=== PATIENT | female | born 1980 | race Caucasian/White ===

== ENCOUNTER 2017-01-07 14:14 | Emergency (ER) | payer OTHER ==
[2017-01-07 14:23] VITALS: O2SAT 99
[2017-01-07] MEDS ORDERED: Zofran 4 MG/2 ML VIAL IV ONE (14:32)
[2017-01-07] MEDS ORDERED: MORPHINE SULFATE 4 MG INJ IV ONE (14:32)
[2017-01-07] MEDS ORDERED: Sodium Chloride 0.9% 1000 ML 1,000 ML IV STA (14:32)
[2017-01-07] MEDS ORDERED: MORPHINE SULFATE 4 MG INJ ONE (14:36)
[2017-01-07] MEDS ORDERED: Sodium Chloride 0.9% 1000 ML 1,000 ML ONE (14:36)
[2017-01-07] MEDS ORDERED: Zofran 4 MG/2 ML VIAL ONE (14:36)
--- NOTE | 2017-01-07 14:36 | ERPHSYRPT ---
- History of Present Illness Time Seen by Provider: 01/07/17 14:33 Historian: patient Exam Limitations: no limitations Patient Subjective Stated Complaint: rt side abd pain Triage Nursing Assessment: 0300--rt side abd pain. states last night she had slight rt lower back pain but woke this morning at 0300 and pain has beenworse today. nausea with no vomiting. bs present. normal bm yesterday Physician History: 36-year-old white female arrives with complaint of midline suprapubic abdominal pain radiating to right flank symptoms since 3:00 this morning described as a burning type pain and squeezing type pain positive nausea no vomiting no diarrhea no melena no hematochezia. Past medical history migraines, GERD. Past surgical history includes cholecystectomy hysterectomy tubal ligation. Timing/Duration: today (3:00 this morning) Activities at Onset: none Quality: burning, pressure Abdominal Pain Onset Location: RLQ, suprapubic, flank (right flank) Pain Radiation: flank (right flank) Severity of Pain-Max: moderate Severity of Pain-Current: moderate Modifying Factors: Improves With: nothing Associated Symptoms: nausea, No chest pain, No diaphoresis, No diarrhea, No fever/chills, No fatigue, No headache, No heartburn, No loss of appetite, No neck pain, No rash, No shortness of breath, No syncope, No vomiting, No weakness Previous symptoms: no prior history Allergies/Adverse Reactions: oxycodone Allergy (Verified 01/07/17 14:23) Penicillins Allergy (Verified 01/07/17 14:23) Home Medications: Omeprazole 20 MG [Prilosec 20 mg] 20 mg PO DAILY 01/07/17 [History] Sumatriptan Succinate [Imitrex 50 mg] 50 mg PO UD 01/07/17 [History] Hx Tetanus, Diphtheria Vaccination/Date Given: Yes Hx Influenza Vaccination/Date Given: No Hx Pneumococcal Vaccination/Date Given: No Immunizations Up to Date: Yes - Review of Systems Constitutional: No Fever, No Chills Eyes: No Symptoms Ears, Nose, & Throat: No Symptoms Respiratory: No Cough, No Dyspnea Cardiac: No Chest Pain, No Edema, No Syncope Abdominal/Gastrointestinal: Abdominal Pain, Nausea, No Vomiting, No Diarrhea, No Constipation, No Hematemesis, No Hematochezia, No Melena, No Dysphagia, No Appetite Changes Genitourinary Symptoms: No Dysuria Musculoskeletal: No Back Pain, No Neck Pain Skin: No Rash Neurological: No Dizziness, No Focal Weakness, No Sensory Changes Psychological: No Symptoms Endocrine: No Symptoms All Other Systems: Reviewed and Negative - Past Medical History Pertinent Past Medical History: Yes Neurological History: Migraines GI Medical History: GERD - Past Surgical History Past Surgical History: Yes Gastrointestinal: Cholecystectomy Female Surgical History: Hysterectomy, Tubal Ligation - Social History Smoking Status: Never smoker Exposure to second hand smoke: Yes Drug Use: none Patient Lives Alone: No - Nursing Vital Signs Nursing Vital Signs: Initial Vital Signs Temperature 99.3 F Temperature Source Oral Pulse Rate 60 Respiratory Rate 18 Blood Pressure [] 145/73 Pain Intensity 1 - Physical Exam General Appearance: mild distress Eye Exam: PERRL/EOMI, eyes nml inspection Ears, Nose, Throat Exam: normal ENT inspection, pharynx normal, moist mucous membranes Neck Exam: normal inspection, non-tender, supple, full range of motion Respiratory Exam: normal breath sounds, lungs clear, No respiratory distress Cardiovascular Exam: regular rate/rhythm, normal heart sounds Gastrointestinal/Abdomen Exam: soft, normal bowel sounds, tenderness ( suprapubic and right-sided abdomina tenderness) Back Exam: normal inspection, normal range of motion, No CVA tenderness, No vertebral tenderness Extremity Exam: normal inspection, normal range of motion, pelvis stable Neurologic Exam: alert, oriented x 3, cooperative, normal mood/affect, nml cerebellar function, sensation nml, No motor deficits Skin Exam: normal color, warm, dry SpO2 Interpretation: normal (99%) SpO2: 99 Oxygen Delivery: Room Air - Course Nursing assessment & vital signs reviewed: Yes - CT Exams Abdomen/Pelvis CT Interpretation: Discussed w/radiologist (CT of the abdomen and pelvis with contrast impression: 1. New 4.2 cm right and 2 centimeter left ovarian cyst, tiny pelvic fluid suggesting leaking. 2. Stable suprapubic fatty ventral hernia, colonic diverticulosis, and hepatic/left renal cysts.) Ordered Tests: Active Orders 24 hr Category Date Time Status IV Insertion STAT Care 01/07/17 14:32 Active ABDOMEN AND PELVIS W CONTRAST [CT] Stat Exams 01/07/17 15:12 Completed AMYLASE Stat Lab 01/07/17 14:32 Completed CBC W DIFF Stat Lab 01/07/17 14:32 Completed CMP Stat Lab 01/07/17 14:32 Completed LIPASE Stat Lab 01/07/17 14:32 Completed UA W/ MICROSCOPIC Stat Lab 01/07/17 14:32 Completed Medication Summary Discontinued Medications Generic Name Dose Route Start Last Admin Trade Name Uday PRN Reason Stop Dose Admin Sodium Chloride 1,000 mls @ 999 mls/hr 01/07/17 14:32 01/07/17 14:38 Sodium Chloride 0.9% 1000 Ml IV 01/07/17 15:32 999 mls/hr .Q1H1M STA Administration Sodium Chloride Confirm 01/07/17 14:36 Sodium Chloride 0.9% 1000 Ml Administered 01/07/17 14:37 Dose 1,000 mls @ ud .ROUTE .STK-MED ONE Morphine Sulfate 4 mg 01/07/17 14:32 01/07/17 14:39 Morphine Sulfate 4 Mg Inj IV 01/07/17 14:33 4 mg STAT ONE Administration Morphine Sulfate Confirm 01/07/17 14:36 Morphine Sulfate 4 Mg Inj Administered 01/07/17 14:37 Dose 4 mg .ROUTE .STK-MED ONE Ondansetron HCl 4 mg 01/07/17 14:32 01/07/17 14:39 Zofran 4 Mg/2 Ml Vial IV 01/07/17 14:33 4 mg STAT ONE Administration Ondansetron HCl Confirm 01/07/17 14:36 Zofran 4 Mg/2 Ml Vial Administered 01/07/17 14:37 Dose 4 mg .ROUTE .STK-MED ONE Lab/Rad Data: Laboratory Result Diagrams 01/07/17 14:32 01/07/17 14:32 Laboratory Results 01/07/17 01/07/17 01/07/17 Range/Units 14:32 14:32 14:32 WBC 11.2 H (4.0-10.5) K/mm3 RBC 4.24 (4.1-5.4) M/mm3 Hgb 12.4 (12.0-16.0) gm/dl Hct 37.1 (35-47) % MCV 87.5 (78-100) fl MCH 29.2 (26-32) pg MCHC 33.4 (32-36) g/dl RDW 13.7 (11.5-14.0) % Plt Count 236 (150-450) K/mm3 MPV 9.6 H (6-9.5) fl Gran % 65.0 (36.0-66.0) % Lymphocytes % 24.1 (24.0-44.0) % Monocytes % 8.9 (0.0-12.0) % Eosinophils % 1.7 (0.00-5.0) % Basophils % 0.3 (0.0-0.4) % Basophils # 0.03 (0-0.4) Sodium 139 (136-145) mEq/L Potassium 3.8 (3.5-5.1) mEq/L Chloride 104 (98-107) mEq/L Carbon Dioxide 21.8 (21-32) mEq/L Anion Gap 16.5 H (5-15) MEQ/L BUN 19 (9-20) mg/dL Creatinine 0.81 (0.55-1.30) mg/dl Estimated GFR > 60 ML/MIN Glucose 103 (70-110) MG/DL Calcium 8.8 (8.5-10.1) mg/dL Total Bilirubin 0.3 (0.2-1.0) mg/dL AST 14 L (15-37) U/L ALT 19 (12-78) U/L Alkaline Phosphatase 81 (46-116) U/L Serum Total Protein 7.5 (6.4-8.2) gm/dL Albumin 3.9 (3.4-5.0) g/dL Amylase 28 (25-115) U/L Lipase 103 (73-393) U/L Ur Collection Type CCMS Urine Color YELLOW (YELLOW) Urine Appearance CLEAR (CLEAR) Urine pH 5.5 (5-6) Ur Specific [place] 1.025 (1.005-1.025) Urine Protein NEGATIVE (Negative) Urine Glucose (UA) NEGATIVE (NEGATIVE) mg/dL Urine Ketones NEGATIVE (NEGATIVE) Urine Nitrite NEGATIVE (NEGATIVE) Urine Bilirubin NEGATIVE (NEGATIVE) Urine Urobilinogen 0.2 (0-1) mg/dL Urine WBC (Auto) NEGATIVE (NEGATIVE) Urine RBC (Auto) MODERATE (0-5) Elia/ul Urine Microscopic RBC 5-10 (0-2) /HPF Urine Microscopic WBC 0-2 (0-5) /HPF Ur Epithelial Cells FEW (FEW) /HPF Urine Bacteria RARE (NEGATIVE) /HPF Specimen Received 01-07-17 1442 - Progress Progress: improved Progress Note: 01/07/17 16:27 Patient feeling better after IV normal saline and morphine. CT of the abdomen shows a new 4.2 cm right and a new 2 cm left ovarian cyst with tiny pelvic fluid suggesting leaky also stable Cipro umbilical fatty ventral hernia, colonic diverticulosis, and hepatic/left renal cyst. Will place patient on clear fluids and place patient on [place] for pain have patient follow-up with her family doctor (Dr. Landa) Patient is asked for the day off today will give her this. Patient has been advised to follow-up with Dr. landa to make an appointment and to return for acute distress or for severe symptoms. - Departure Time of Disposition: 16:28 Departure Disposition: Home Clinical Impression: Abdominal pain Qualifiers: Abdominal location: right lower quadrant Qualified Code(s): R10.31 - Right lower quadrant pain Ovarian cyst Qualifiers: Laterality: bilateral Qualified Code(s): N83.201 - Unspecified ovarian cyst, right side Condition: Fair Critical Care Time: No Referrals: JOSEPH LANDA [Primary Care Provider] - Instructions: Abdominal Pain-Adult Additional Instructions: Return home. Plenty of fluids. Clear fluids only if abdominal pain. [place] 5/325 #15 one to 2 orally every 4-6 hours as needed for pain. Follow-up with Dr. landa. Return for acute distress or for severe symptoms. Prescriptions: Hydrocodone/Acetaminophen [[place] 5-325 Tablet] 1 - 2 tab PO Q4-6HPRN PRN #15 tablet PRN Reason: Pain
[2017-01-07 14:42] LABS: BASOPHIL % 0.3 % (0.0-0.4); Eosinophil % 1.7 % (0.00-5.0); Lymphocytes % 24.1 % (24.0-44.0); Mean Cell Volume 87.5 fl (78-100); Mean Corpuscular Hemoglobin 29.2 pg (26-32); Mean Platelet Volume 9.6 fl (6-9.5); Monocytes % 8.9 % (0.0-12.0); Platelet Count 236 K/mm3 (150-450); Red Blood Count 4.24 M/mm3 (4.1-5.4); Red Cell Distribution Width 13.7 % (11.5-14.0); White Blood Count 11.2 K/mm3 (4.0-10.5)
[2017-01-07 15:03] LABS: ALBUMIN 3.9 g/dL (3.4-5.0); ALKALINE PHOSPHATASE 81 U/L (46-116); ANION GAP 16.5 MEQ/L (5-15); BILIRUBIN,TOTAL 0.3 mg/dL (0.2-1.0); BLOOD UREA NITROGEN 19 mg/dL (9-20); CHLORIDE 104 mEq/L (98-107); Carbon Dioxide 21.8 mEq/L (21-32); Glucose 103 MG/DL (70-110); LIPASE 103 U/L (73-393); Potassium 3.8 mEq/L (3.5-5.1); SGOT/AST 14 U/L (15-37); SGPT/ALT 19 U/L (12-78); SODIUM 139 mEq/L (136-145); Total Protein 7.5 gm/dL (6.4-8.2)
[2017-01-07 15:05] LABS: Collection Type CCMS
[2017-01-07 15:06] LABS: Bacteria RARE /HPF (NEGATIVE); COMPLETE URINE MICROSCOPIC? YES; Epithelial Cells FEW /HPF (FEW); Ph 5.5 (5-6); WBC 0-2 /HPF (0-5)
[2017-01-07 16:21] VITALS: BP 145/73; PULSE 60
--- NOTE | 2017-01-07 16:23 | XRAY ---
Indication: Severe right lower abdominal pain. Multiple contiguous axial images obtained through the abdomen and pelvis using 80 cc of Isovue-370 contrast. Comparison: September 03, 2017. Lung bases demonstrate minimal right base dependent atelectasis and left base fibrosis. No infiltrate, consolidation, or effusion. Heart is not enlarged. There is stable midline supraumbilical ventral hernia defect with large omental fat herniating. Noncontrasted stomach and bowel loops appear nonobstructed. Stable minimal descending/sigmoid diverticulosis without diverticulitis. Normal appendix. Previous cholecystectomy and partial hysterectomy. New 4.2 cm right and 2.0 cm left adnexal cystic masses probably ovary in etiology. Tiny pelvic fluid presumed ruptured/leaking cyst. No free air. Stable 1.5 cm caudate lobe hepatic cyst and tiny left renal cortical cyst. Remaining liver, pancreas, spleen, adrenal glands, kidneys, ureters, bladder, and aorta appear normal in CT appearance and attenuation. Osseous structures intact. Impression: 1. New 4.2 cm right and 2 cm left ovarian cysts. Tiny pelvic fluid suggests leaking/ruptured cyst. 2. Stable supraumbilical fatty ventral hernia, colonic diverticulosis, and hepatic/left renal cysts. CT DI 34.81
== END 2017-01-07 16:35 | disposition home or self-care (01) ==
LOC: ED 14:14
DX: R10.31 Right lower quadrant pain (principal); N83.201 Unspecified ovarian cyst, right side; M54.5 Low back pain; R10.9 Unspecified abdominal pain; R11.0 Nausea
CPT/HCPCS: 36000; 36415; 74177; 80053; 81000; 82150; 83690; 85025; 96360; 96374; 96375; 99284; J2270; J2405

== ENCOUNTER 2017-02-16 05:49 | Day surgery (SDC) | payer OTHER ==
[2017-02-16] MEDS ORDERED: Lactated Ringers 1,000 ML IV SCH (06:00)
[2017-02-16] MEDS ORDERED: Versed 2 MG/2 ML Injection IV ONE (06:00)
[2017-02-16] MEDS ORDERED: DIPRIVAN 200 MG/20 ML IV ONE (06:00)
[2017-02-16 08:27] VITALS: O2SAT 99
[2017-02-16 09:00] VITALS: BP 134/78; PULSE 55
--- NOTE | 2017-02-16 09:19 | OP ---
SURGERY DATE/TIME: 02/16/2017 0740 PREOPERATIVE DIAGNOSIS: Right upper quadrant abdominal pain. POSTOPERATIVE DIAGNOSIS: Moderate to severe antral gastritis. PROCEDURE: Esophagogastroduodenoscopy with biopsy. SURGEON: Dr. Darling. ANESTHESIA: MAC. Medications were given by the anesthesia department. BRIEF HISTORY: The patient is a 36 year old white female who presents now for complaints of right upper quadrant abdominal pain. The patient reports that she had been taking ibuprofen previously but had switched over to [place] by her doctor's suggestion. She reports that she had previously had cholecystectomy in 2007 but this pain does feel different than when she had the gallbladder removed. The patient was felt the need have endoscopic evaluation and appraised of the risks of the procedure including the risk of perforation, phlebitis, untoward reaction to medication, bleeding, missed lesions. The patient verbalized her understanding and desired to have the procedure performed. DESCRIPTION OF PROCEDURE: The patient was given the medications by the anesthesia department. She had continuous pulse oximetry, ECG monitoring, intermittent blood pressure monitoring and tidal CO2 monitoring during the examination. She was placed in the left lateral decubitus position. A bite block was placed. The flexible Olympus gastroscope was used to intubate the oropharynx. A view of the larynx was obtained and was normal. The scope was easily passed in the esophagus which appeared to be normal throughout its length. The stomach was entered where normal gastric rugal folds were seen and these distended nicely with insufflation of air. The scope was passed along the greater curvature of the stomach to the antrum which was moderately erythematous. There was noted to be small erosions bordering on ulceration near the pylorus. The scope was advanced through the pylorus. The duodenum was inspected and found to be normal. The scope is withdrawn towards the stomach. Again, a retroflex view was obtained of the lesser curvature, fundus and cardia regions of the stomach and these appeared to be normal other than some erythematous patches. The scope was then redirected towards the gastric antrum and biopsies were obtained to rule out the presence of Helicobacter pylori-type organisms. The scope was then removed from the patient who tolerated the procedure well and was sent back to outpatient recovery in good condition.
== END 2017-02-16 09:05 | disposition home or self-care (01) ==
LOC: SDC 05:49
PROVIDERS: ATTEND Family Medicine
PROC: 0DB68ZX Excision of Stomach, Via Natural or Artificial Opening Endoscopic, Diagnostic (ICD-10-PCS; principal; 2017-02-16)
DX: K29.70 Gastritis, unspecified, without bleeding (principal)
CPT/HCPCS: 00740; 36415; 88305; J2250; J2704

== ENCOUNTER 2017-12-26 16:54 | Emergency (ER) | payer BC, OTHER ==
[2017-12-26] MEDS ORDERED: BABY ASPIRIN 81 MG CHEW PO ONE (17:06)
--- NOTE | 2017-12-26 17:11 | ERPHSYRPT ---
- History of Present Illness Time Seen by Provider: 12/26/17 16:54 Source: patient Exam Limitations: no limitations Physician History: FOR THE PAST WEEK PT HAS FELT HER HEART FLUTTERING; FOR THE PAST 2 DAYS DIARRHEA X5 WITHOUT BLOOD; FOR THE PAST 8 HOURS SHORTNESS OF AIR. PT DENIES ABDOMINAL PAIN, NAUSEA, VOMITING, FEVER. Allergies/Adverse Reactions: oxycodone Allergy (Verified 12/26/17 17:08) Penicillins Allergy (Verified 12/26/17 17:08) Home Medications: Sumatriptan Succinate [Imitrex 50 mg] 50 mg PO UD 01/07/17 [History] Esomeprazole Magnesium [Nexium] 40 mg PO DAILY 02/13/17 [History] Lisinopril 10 mg [Zestril 10 MG] 10 mg PO DAILY 02/13/17 [History] Hx Tetanus, Diphtheria Vaccination/Date Given: Yes Hx Influenza Vaccination/Date Given: No Hx Pneumococcal Vaccination/Date Given: No - Review of Systems Constitutional: No Fever Respiratory: Dyspnea Cardiac: Palpitations Abdominal/Gastrointestinal: Diarrhea, No Abdominal Pain, No Nausea, No Vomiting All Other Systems: Reviewed and Negative - Past Medical History Pertinent Past Medical History: Yes Neurological History: Migraines ENT History: No Pertinent History Cardiac History: Arrhythmia, Deep Vein Thrombosis, Hypertension, Myocardial Infarction ([place]), Other Respiratory History: No Pertinent History Endocrine Medical History: No Pertinent History Musculoskeletal History: No Pertinent History GI Medical History: GERD History: No Pertinent History Psycho-Social History: No Pertinent History Other Medical History: states heart murmur and valve problems - Past Surgical History Past Surgical History: Yes Neuro Surgical History: No Pertinent History Cardiac: No Pertinent History Respiratory: No Pertinent History Gastrointestinal: Cholecystectomy Female Surgical History: Hysterectomy, Tubal Ligation - Social History Smoking Status: Never smoker Exposure to second hand smoke: Yes Drug Use: none Patient Lives Alone: No - Nursing Vital Signs Nursing Vital Signs: Initial Vital Signs Temperature 97.7 F 12/26/17 16:57 Pulse Rate 62 12/26/17 16:57 Respiratory Rate 18 12/26/17 16:57 Blood Pressure 161/85 12/26/17 16:57 O2 Sat by Pulse Oximetry 99 12/26/17 16:57 Pain Scale Pain Intensity 0 - Physical Exam General Appearance: alert Eye Exam: PERRL/EOMI Ears, Nose, Throat Exam: TMs normal, pharynx normal, moist mucous membranes Neck Exam: normal inspection Respiratory Exam: lungs clear Cardiovascular Exam: normal heart sounds, No murmur Gastrointestinal/Abdomen Exam: soft, normal bowel sounds Back Exam: normal range of motion Extremity Exam: normal inspection, No pedal edema Neurologic Exam: alert, cooperative Skin Exam: warm, dry - Course Nursing assessment & vital signs reviewed: Yes EKG Interpreted by Me: RATE (55), Sinus [place], NORMAL AXIS, NORMAL INTERVALS - Radiology Exams Chest X-ray Interpretation: Interpreted by me, No Pneumonia Ordered Tests: Active Orders 24 hr Category Date Time Status Timber Setter STAT Care 12/26/17 17:07 Active EKG-ER Only STAT Care 12/26/17 17:06 Active IV Insertion STAT Care 12/26/17 17:06 Active Oxygen-ED Only NASAL CANNULA 2 lpm Care 12/26/17 17:06 Active Pulse Oximetry (ED) STAT Care 12/26/17 17:06 Active CHEST 1 VIEW (PORTABLE) Stat Exams 12/26/17 17:06 Taken AMYLASE Stat Lab 12/26/17 17:15 Completed CBC W DIFF Stat Lab 12/26/17 17:15 Completed CMP Stat Lab 12/26/17 17:15 Completed D-DIMER QUANTITATION Stat Lab 12/26/17 17:15 Completed HCG QUALITATIVE,SERUM Stat Lab 12/26/17 17:15 Completed LIPASE Stat Lab 12/26/17 17:15 Completed MAGNESIUM Stat Lab 12/26/17 17:15 Completed NT PRO BNP Stat Lab 12/26/17 17:15 Completed TROPONIN Q3H Lab 12/26/17 17:15 Completed TROPONIN Q3H Lab 12/26/17 20:15 Ordered TROPONIN Q3H Lab 12/26/17 23:15 Ordered TROPONIN Q3H Lab 12/27/17 02:15 Ordered TROPONIN Q3H Lab 12/27/17 05:15 Ordered UA W/ MICROSCOPIC Stat Lab 12/26/17 17:30 Completed Urine Triage Profile Stat Lab 12/26/17 17:30 Completed Medication Summary Generic Name Dose Route Start Last Admin Trade Name Freq PRN Reason Stop Dose Admin Sodium Chloride 1,000 mls @ 100 mls/hr 12/26/17 17:15 12/26/17 17:30 Sodium Chloride 0.9% 1000 Ml IV 01/25/18 17:14 100 mls/hr .Q10H LILLIAM Administration Discontinued Medications Generic Name Dose Route Start Last Admin Trade Name Uday PRN Reason Stop Dose Admin Aspirin 324 mg 12/26/17 17:06 12/26/17 17:29 Baby Aspirin 81 Mg Chew PO 12/26/17 17:07 324 mg STAT ONE Administration Aspirin Confirm 12/26/17 17:22 Baby Aspirin 81 Mg Chew Administered 12/26/17 17:23 Dose 324 mg .ROUTE .STK-MED ONE Lab/Rad Data: Laboratory Result Diagrams 12/26/17 17:15 12/26/17 17:15 Laboratory Results 12/26/17 12/26/17 12/26/17 Range/Units 17:30 17:30 17:15 WBC (4.0-10.5) K/mm3 RBC (4.1-5.4) M/mm3 Hgb (12.0-16.0) gm/dl Hct (35-47) % MCV (78-100) fl MCH (26-32) pg MCHC (32-36) g/dl RDW (11.5-14.0) % Plt Count (150-450) K/mm3 MPV (6-9.5) fl Gran % (36.0-66.0) % Eos # (Auto) (0-0.5) Absolute Lymphs (auto) (1.0-4.6) Absolute Monos (auto) (0.0-1.3) Lymphocytes % (24.0-44.0) % Monocytes % (0.0-12.0) % Eosinophils % (0.00-5.0) % Basophils % (0.0-0.4) % Absolute Granulocytes (1.4-6.9) Basophils # (0-0.4) D-Dimer (215-500) ng/mL Sodium (137-145) mmol/L Potassium (3.5-5.1) mmol/L Chloride (98-107) mmol/L Carbon Dioxide (22-30) mmol/L Anion Gap (5-15) MEQ/L BUN (7-17) mg/dL Creatinine (0.52-1.04) mg/dL Estimated GFR ML/MIN Glucose (74-106) mg/dL Calcium (8.4-10.2) mg/dL Magnesium (1.6-2.3) mg/dL Total Bilirubin (0.2-1.3) mg/dL AST (14-36) U/L ALT (0-35) U/L Alkaline Phosphatase (38-126) U/L Troponin I (0.000-0.034) ng/mL NT-Pro-B Natriuret Pep (0-450) pg/mL Serum Total Protein (6.3-8.2) g/dL Albumin (3.5-5.0) g/dL Amylase (30-110) U/L Lipase (23-300) U/L Serum , Qual NEGATIVE (Negative) Ur Collection Type CLEAN CATCH Urine Color YELLOW (YELLOW) Urine Appearance CLEAR (CLEAR) Urine pH 7.0 (5-6) Ur Specific [place] 1.015 (1.005-1.025) Urine Protein NEGATIVE (Negative) Urine Ketones SMALL (NEGATIVE) Urine Blood TRACE NON-HEM (0-5) Elia/ul Urine Nitrite NEGATIVE (NEGATIVE) Urine Bilirubin NEGATIVE (NEGATIVE) Urine Urobilinogen NORMAL (0-1) mg/dL Ur Leukocyte Esterase NEGATIVE (NEGATIVE) Urine Microscopic RBC 2-5 (0-2) /HPF Ur Epithelial Cells FEW (FEW) /HPF Urine Bacteria RARE (NEGATIVE) /HPF Urine Culture Reflexed NO (NO) Urine Glucose NEGATIVE (NEGATIVE) mg/dL Urine Opiates Level NEGATIVE (NEGATIVE) Ur Methadone NEGATIVE (NEGATIVE) Urine Barbiturates NEGATIVE (NEGATIVE) Ur Phencyclidine (PCP) NEGATIVE (NEGATIVE) Urine Amphetamine NEGATIVE (NEGATIVE) U Benzodiazepine Level NEGATIVE (NEGATIVE) Urine Cocaine NEGATIVE (NEGATIVE) Urine Marijuana (THC) POSITIVE (NEGATIVE) Specimen Received 12/26/17 0000 12/26/17 12/26/17 12/26/17 Range/Units 17:15 17:15 17:15 WBC (4.0-10.5) K/mm3 RBC (4.1-5.4) M/mm3 Hgb (12.0-16.0) gm/dl Hct (35-47) % MCV (78-100) fl MCH (26-32) pg MCHC (32-36) g/dl RDW (11.5-14.0) % Plt Count (150-450) K/mm3 MPV (6-9.5) fl Gran % (36.0-66.0) % Eos # (Auto) (0-0.5) Absolute Lymphs (auto) (1.0-4.6) Absolute Monos (auto) (0.0-1.3) Lymphocytes % (24.0-44.0) % Monocytes % (0.0-12.0) % Eosinophils % (0.00-5.0) % Basophils % (0.0-0.4) % Absolute Granulocytes (1.4-6.9) Basophils # (0-0.4) D-Dimer < 215 L (215-500) ng/mL Sodium 137 (137-145) mmol/L Potassium 3.8 (3.5-5.1) mmol/L Chloride 105 (98-107) mmol/L Carbon Dioxide 21 L (22-30) mmol/L Anion Gap 14.6 (5-15) MEQ/L BUN 16 (7-17) mg/dL Creatinine 0.75 (0.52-1.04) mg/dL Estimated GFR > 60.0 ML/MIN Glucose 106 (74-106) mg/dL Calcium 9.4 (8.4-10.2) mg/dL Magnesium 2.0 (1.6-2.3) mg/dL Total Bilirubin 0.60 (0.2-1.3) mg/dL AST 16 (14-36) U/L ALT 15 (0-35) U/L Alkaline Phosphatase 90 (38-126) U/L Troponin I < 0.012 (0.000-0.034) ng/mL NT-Pro-B Natriuret Pep 82.1 (0-450) pg/mL Serum Total Protein 7.8 (6.3-8.2) g/dL Albumin 4.4 (3.5-5.0) g/dL Amylase 48 (30-110) U/L Lipase 89 (23-300) U/L Serum , Qual (Negative) Ur Collection Type Urine Color (YELLOW) Urine Appearance (CLEAR) Urine pH (5-6) Ur Specific [place] (1.005-1.025) Urine Protein (Negative) Urine Ketones (NEGATIVE) Urine Blood (0-5) Elia/ul Urine Nitrite (NEGATIVE) Urine Bilirubin (NEGATIVE) Urine Urobilinogen (0-1) mg/dL Ur Leukocyte Esterase (NEGATIVE) Urine Microscopic RBC (0-2) /HPF Ur Epithelial Cells (FEW) /HPF Urine Bacteria (NEGATIVE) /HPF Urine Culture Reflexed (NO) Urine Glucose (NEGATIVE) mg/dL Urine Opiates Level (NEGATIVE) Ur Methadone (NEGATIVE) Urine Barbiturates (NEGATIVE) Ur Phencyclidine (PCP) (NEGATIVE) Urine Amphetamine (NEGATIVE) U Benzodiazepine Level (NEGATIVE) Urine Cocaine (NEGATIVE) Urine Marijuana (THC) (NEGATIVE) Specimen Received 12/26/17 Range/Units 17:15 WBC 9.5 (4.0-10.5) K/mm3 RBC 4.71 (4.1-5.4) M/mm3 Hgb 13.7 (12.0-16.0) gm/dl Hct 40.1 (35-47) % MCV 85.1 (78-100) fl MCH 29.1 (26-32) pg MCHC 34.2 (32-36) g/dl RDW 12.9 (11.5-14.0) % Plt Count 257 (150-450) K/mm3 MPV 9.5 (6-9.5) fl Gran % 65.4 (36.0-66.0) % Eos # (Auto) 0.09 (0-0.5) Absolute Lymphs (auto) 2.40 (1.0-4.6) Absolute Monos (auto) 0.77 (0.0-1.3) Lymphocytes % 25.3 (24.0-44.0) % Monocytes % 8.1 (0.0-12.0) % Eosinophils % 0.9 (0.00-5.0) % Basophils % 0.3 (0.0-0.4) % Absolute Granulocytes 6.19 (1.4-6.9) Basophils # 0.03 (0-0.4) D-Dimer (215-500) ng/mL Sodium (137-145) mmol/L Potassium (3.5-5.1) mmol/L Chloride (98-107) mmol/L Carbon Dioxide (22-30) mmol/L Anion Gap (5-15) MEQ/L BUN (7-17) mg/dL Creatinine (0.52-1.04) mg/dL Estimated GFR ML/MIN Glucose (74-106) mg/dL Calcium (8.4-10.2) mg/dL Magnesium (1.6-2.3) mg/dL Total Bilirubin (0.2-1.3) mg/dL AST (14-36) U/L ALT (0-35) U/L Alkaline Phosphatase (38-126) U/L Troponin I (0.000-0.034) ng/mL NT-Pro-B Natriuret Pep (0-450) pg/mL Serum Total Protein (6.3-8.2) g/dL Albumin (3.5-5.0) g/dL Amylase (30-110) U/L Lipase (23-300) U/L Serum , Qual (Negative) Ur Collection Type Urine Color (YELLOW) Urine Appearance (CLEAR) Urine pH (5-6) Ur Specific [place] (1.005-1.025) Urine Protein (Negative) Urine Ketones (NEGATIVE) Urine Blood (0-5) Elia/ul Urine Nitrite (NEGATIVE) Urine Bilirubin (NEGATIVE) Urine Urobilinogen (0-1) mg/dL Ur Leukocyte Esterase (NEGATIVE) Urine Microscopic RBC (0-2) /HPF Ur Epithelial Cells (FEW) /HPF Urine Bacteria (NEGATIVE) /HPF Urine Culture Reflexed (NO) Urine Glucose (NEGATIVE) mg/dL Urine Opiates Level (NEGATIVE) Ur Methadone (NEGATIVE) Urine Barbiturates (NEGATIVE) Ur Phencyclidine (PCP) (NEGATIVE) Urine Amphetamine (NEGATIVE) U Benzodiazepine Level (NEGATIVE) Urine Cocaine (NEGATIVE) Urine Marijuana (THC) (NEGATIVE) Specimen Received - Departure Time of Disposition: 18:20 Departure Disposition: Home Clinical Impression: DYSPNEA, PALPITATIONS, DIARRHEA Condition: Stable Critical Care Time: No Referrals: JOSEPH BENDER [Primary Care Provider] - Instructions: Shortness of Breath (Dyspnea) (DC), Diarrhea and Traveler's Diarrhea, Adult (DC) Additional Instructions: FOLLOW UP WITH PRIVATE DOCTOR TOMORROW.
[2017-12-26] MEDS ORDERED: Sodium Chloride 0.9% 1000 ML 1,000 ML IV SCH (17:15)
[2017-12-26 17:18] VITALS: O2SAT 98
[2017-12-26] MEDS ORDERED: Sodium Chloride 0.9% 1000 ML 1,000 ML ONE (17:22)
[2017-12-26] MEDS ORDERED: BABY ASPIRIN 81 MG CHEW ONE (17:22)
[2017-12-26 17:35] LABS: BASOPHIL % 0.3 % (0.0-0.4); Basophil (Absolute #) 0.03 (0-0.4); Eosinophil % 0.9 % (0.00-5.0); Eosinophil (Absolute #) 0.09 (0-0.5); Granulocyte Absolute (ANC) 6.19 (1.4-6.9); Granulocytes % 65.4 % (36.0-66.0); Hematocrit 40.1 % (35-47); Hemoglobin 13.7 gm/dl (12.0-16.0); Lymphocytes % 25.3 % (24.0-44.0); Mean Cell Volume 85.1 fl (78-100); Mean Corpuscular Hemoglobin 29.1 pg (26-32); Mean Corpuscular Hgb Concent. 34.2 g/dl (32-36); Mean Platelet Volume 9.5 fl (6-9.5); Monocyte (Absolute #) 0.77 (0.0-1.3); Monocytes % 8.1 % (0.0-12.0); Platelet Count 257 K/mm3 (150-450); Red Blood Count 4.71 M/mm3 (4.1-5.4); Red Cell Distribution Width 12.9 % (11.5-14.0); White Blood Count 9.5 K/mm3 (4.0-10.5)
[2017-12-26 17:56] LABS: Appearance CLEAR (CLEAR); Leukocyte Esterase NEGATIVE (NEGATIVE); Nitrite NEGATIVE (NEGATIVE); Protein,Urine Dip NEGATIVE (Negative); Specific Gravity 1.015 (1.005-1.025)
[2017-12-26 17:57] LABS: ALBUMIN 4.4 g/dL (3.5-5.0); ALKALINE PHOSPHATASE 90 U/L (38-126); AMYLASE 48 U/L (30-110); ANION GAP 14.6 MEQ/L (5-15); BLOOD UREA NITROGEN 16 mg/dL (7-17); CHLORIDE 105 mmol/L (98-107); Calcium 9.4 mg/dL (8.4-10.2); Carbon Dioxide 21 mmol/L (22-30); Creatinine 1 0.75 mg/dL (0.52-1.04); Glucose 106 mg/dL (74-106); LIPASE 89 U/L (23-300); Potassium 3.8 mmol/L (3.5-5.1); SGOT/AST 16 U/L (14-36); SGPT/ALT 15 U/L (0-35); SODIUM 137 mmol/L (137-145); Total Protein 7.8 g/dL (6.3-8.2)
[2017-12-26 17:57] LABS: Amphetamine,Urine NEGATIVE (NEGATIVE); Bacteria RARE /HPF (NEGATIVE); Barbiturate,Urine NEGATIVE (NEGATIVE); Benzodiazepine,Urine NEGATIVE (NEGATIVE); Bilirubin NEGATIVE (NEGATIVE); Blood TRACE NON-HEM Ery/ul (0-5); Cocaine,Urine NEGATIVE (NEGATIVE); Epithelial Cells FEW /HPF (FEW); Glucose NEGATIVE (NEGATIVE); Ketones SMALL (NEGATIVE); Methadone,Urine NEGATIVE (NEGATIVE); Opiate,Urine NEGATIVE (NEGATIVE); PCP,Urine NEGATIVE (NEGATIVE); THC,Urine POSITIVE (NEGATIVE); Urobilinogen NORMAL mg/dL (0-1)
[2017-12-26 18:06] LABS: NT PRO BNP 82.1 pg/mL (0-450)
[2017-12-26 18:29] VITALS: BP 138/102; PULSE 60
--- NOTE | 2017-12-26 21:06 | XRAY ---
Indication: Short of breath. Comparison: None Portable chest demonstrate normal heart, lungs, and bony thorax.
== END 2017-12-26 18:33 | disposition home or self-care (01) ==
LOC: ED 16:54
DX: R06.00 Dyspnea, unspecified (principal); R00.2 Palpitations; R19.7 Diarrhea, unspecified; Z79.899 Other long term (current) drug therapy
CPT/HCPCS: 36000; 36415; 71045; 80053; 80307; 81000; 82150; 83690; 83735; 83880; 84484; 84703; 85025; 85379; 93005; 93041; 96360; 96361; 99284; A9270-GY

== ENCOUNTER 2018-11-08 19:25 | Emergency (ER) | payer BC, SELFPAY ==
--- NOTE | 2018-11-08 19:52 | ERPHSYRPT ---
- History of Present Illness Time Seen by Provider: 11/08/18 19:47 Historian: patient Exam Limitations: no limitations Patient Subjective Stated Complaint: pt states she suddenly began having rt sided back pain approx 1 hour prior to arrival Triage Nursing Assessment: pt alert and orienteed, asnwers questions approp. pt ambulatory with slow steady gait noted. respirations nonlabored with lungs cta. abd soft and nontender to light palpation. urine rush and clear Physician History: The patient is a 37-year-old female with her daughter complaining of a sudden onset of right flank pain with nausea that began one hour ago. The pain is very severe. She has not taken anything for the pain. She denies vomiting or diarrhea. She denies fever. Her past medical history is significant for HTN, migraine headaches, kidney stones, cholecystectomy, and hysterectomy. Timing/Duration: today, hour(s) (1), sudden, worse Activities at Onset: none Quality: sharpness, stabbing Abdominal Pain Onset Location: flank (right) Pain Radiation: no radiation Severity of Pain-Max: severe Severity of Pain-Current: severe Modifying Factors: Improves With: nothing Associated Symptoms: nausea, No diarrhea, No fever/chills, No headache, No vomiting Previous symptoms: same symptoms as today Allergies/Adverse Reactions: oxycodone Allergy (Verified 11/08/18 19:48) Penicillins Allergy (Verified 11/08/18 19:48) Home Medications: SUMAtriptan succinate [Imitrex 50 mg] 50 mg PO UD 01/07/17 [History] Esomeprazole Magnesium [Nexium] 40 mg PO DAILY 02/13/17 [History] Lisinopril 10 mg [Zestril 10 MG] 20 mg PO DAILY 02/13/17 [History] Hx Tetanus, Diphtheria Vaccination/Date Given: Yes Hx Influenza Vaccination/Date Given: No Hx Pneumococcal Vaccination/Date Given: No Immunizations Up to Date: Yes - Review of Systems Constitutional: No Fever, No Chills Eyes: No Symptoms Ears, Nose, & Throat: No Symptoms Respiratory: No Cough, No Dyspnea Cardiac: No Chest Pain, No Edema, No Syncope Abdominal/Gastrointestinal: Abdominal Pain (right flank), Nausea Genitourinary Symptoms: No Dysuria Musculoskeletal: No Back Pain, No Neck Pain Skin: No Rash Neurological: No Dizziness, No Focal Weakness, No Sensory Changes Psychological: No Symptoms Endocrine: No Symptoms Hematologic/Lymphatic: No Symptoms Immunological/Allergic: No Symptoms All Other Systems: Reviewed and Negative - Past Medical History Pertinent Past Medical History: Yes Neurological History: Migraines ENT History: No Pertinent History Cardiac History: Arrhythmia, Deep Vein Thrombosis, Hypertension, Myocardial Infarction ([place]), Other Respiratory History: No Pertinent History Endocrine Medical History: No Pertinent History Musculoskeletal History: No Pertinent History GI Medical History: GERD History: No Pertinent History Psycho-Social History: No Pertinent History Other Medical History: states heart murmur and valve problems - Past Surgical History Past Surgical History: Yes Neuro Surgical History: No Pertinent History Cardiac: No Pertinent History Respiratory: No Pertinent History Gastrointestinal: Cholecystectomy Female Surgical History: Hysterectomy, Tubal Ligation - Social History Smoking Status: Former smoker Exposure to second hand smoke: Yes Drug Use: none Patient Lives Alone: No - Female History Hx Last Menstrual Period: hyster Hx Now: No - Nursing Vital Signs Nursing Vital Signs: Initial Vital Signs Temperature 97.5 F 11/08/18 19:33 Pulse Rate 61 11/08/18 19:33 Respiratory Rate 20 11/08/18 19:33 Blood Pressure 150/91 11/08/18 19:33 O2 Sat by Pulse Oximetry 100 11/08/18 19:33 Pain Scale Pain Intensity 8 - Physical Exam General Appearance: severe distress, obese Eye Exam: PERRL/EOMI, eyes nml inspection Ears, Nose, Throat Exam: normal ENT inspection, pharynx normal, moist mucous membranes Neck Exam: normal inspection, non-tender, supple, full range of motion Respiratory Exam: normal breath sounds, lungs clear, No respiratory distress Cardiovascular Exam: regular rate/rhythm, normal heart sounds Gastrointestinal/Abdomen Exam: tenderness (right flank) Pelvic Exam: not done Rectal Exam: not done Back Exam: normal inspection, normal range of motion, No CVA tenderness, No vertebral tenderness Extremity Exam: normal inspection, normal range of motion, pelvis stable Neurologic Exam: alert, oriented x 3, cooperative, normal mood/affect, nml cerebellar function, sensation nml, No motor deficits Skin Exam: normal color, warm, dry SpO2 Interpretation: normal SpO2: 100 O2 Delivery: Room Air - CT Exams Abdomen/Pelvis CT Interpretation: Tele-radiologist Report (per Dr Brice), No appendicitis, Other (2 m stone in proximal right ureter with mild hydronephrosis) Ordered Tests: Active Orders 24 hr Category Date Time Status Clean Catch Urine Specimen STAT Care 11/08/18 19:53 Active IV Insertion STAT Care 11/08/18 19:53 Active ABDOMEN AND PELVIS W/0 CONTRAS [CT] Stat Exams 11/08/18 19:54 Taken AMYLASE Stat Lab 11/08/18 19:45 Completed CBC W DIFF Stat Lab 11/08/18 19:45 Completed CMP Stat Lab 11/08/18 19:45 Completed CULTURE,URINE Stat Lab 11/08/18 19:45 Received LIPASE Stat Lab 11/08/18 19:45 Completed Lactic Acid Stat Lab 11/08/18 20:15 Completed UA W/RFX UR CULTURE Stat Lab 11/08/18 19:45 Completed Medication Summary Generic Name Dose Route Start Last Admin Trade Name Freq PRN Reason Stop Dose Admin Sodium Chloride 1,000 mls @ 999 mls/hr 11/08/18 22:14 11/08/18 22:32 Sodium Chloride 0.9% 1000 Ml IV 11/08/18 23:14 999 mls/hr .Q1H1M STA Administration Discontinued Medications Generic Name Dose Route Start Last Admin Trade Name Freq PRN Reason Stop Dose Admin Hydromorphone HCl 1 mg 11/08/18 19:53 11/08/18 20:07 Hydromorphone 1 Mg/Ml Ampule IV 11/08/18 19:54 1 mg STAT ONE Administration Hydromorphone HCl Confirm 11/08/18 19:59 Hydromorphone 1 Mg/Ml Ampule Administered 11/08/18 20:00 Dose 1 mg .ROUTE .STK-MED ONE Hydromorphone HCl 1 mg 11/08/18 22:14 11/08/18 22:33 Hydromorphone 1 Mg/Ml Ampule IV 11/08/18 22:15 1 mg STAT ONE Administration Hydromorphone HCl Confirm 11/08/18 22:27 Hydromorphone 1 Mg/Ml Ampule Administered 11/08/18 22:28 Dose 1 mg .ROUTE .STK-MED ONE Sodium Chloride 1,000 mls @ 999 mls/hr 11/08/18 19:53 11/08/18 20:08 Sodium Chloride 0.9% 1000 Ml IV 11/08/18 20:53 999 mls/hr .Q1H1M STA Administration Sodium Chloride Confirm 11/08/18 20:00 Sodium Chloride 0.9% 1000 Ml Administered 11/08/18 20:01 Dose 1,000 mls @ ud .ROUTE .STK-MED ONE Sodium Chloride Confirm 11/08/18 22:27 Sodium Chloride 0.9% 1000 Ml Administered 11/08/18 22:28 Dose 1,000 mls @ ud .ROUTE .STK-MED ONE Ondansetron HCl 4 mg 11/08/18 19:55 11/08/18 20:07 Zofran 4 Mg/2 Ml Vial IV 11/08/18 19:56 4 mg STAT ONE Administration Ondansetron HCl Confirm 11/08/18 19:59 Zofran 4 Mg/2 Ml Vial Administered 11/08/18 20:00 Dose 4 mg .ROUTE .STK-MED ONE Promethazine HCl 25 mg 11/08/18 19:53 11/08/18 20:07 Phenergan 25 Mg Inj IM 11/08/18 19:54 25 mg STAT ONE Administration Promethazine HCl Confirm 11/08/18 19:59 Phenergan 25 Mg Inj Administered 11/08/18 20:00 Dose 25 mg .ROUTE .STK-MED ONE Lab/Rad Data: Laboratory Result Diagrams 11/08/18 19:45 11/08/18 19:45 Laboratory Results 11/08/18 11/08/18 11/08/18 Range/Units 20:15 19:45 19:45 WBC (4.0-10.5) K/mm3 RBC (4.1-5.4) M/mm3 Hgb (12.0-16.0) gm/dl Hct (35-47) % MCV (78-100) fl MCH (26-32) pg MCHC (32-36) g/dl RDW (11.5-14.0) % Plt Count (150-450) K/mm3 MPV (6-9.5) fl Gran % (36.0-66.0) % Eos # (Auto) (0-0.5) Absolute Lymphs (auto) (1.0-4.6) Absolute Monos (auto) (0.0-1.3) Lymphocytes % (24.0-44.0) % Monocytes % (0.0-12.0) % Eosinophils % (0.00-5.0) % Basophils % (0.0-0.4) % Absolute Granulocytes (1.4-6.9) Basophils # (0-0.4) Sodium 137 (137-145) mmol/L Potassium 3.5 (3.5-5.1) mmol/L Chloride 106 (98-107) mmol/L Carbon Dioxide 21 L (22-30) mmol/L Anion Gap 14.0 (5-15) MEQ/L BUN 24 H (7-17) mg/dL Creatinine 0.72 (0.52-1.04) mg/dL Estimated GFR > 60.0 ML/MIN Glucose 113 H (74-106) mg/dL Lactic Acid 1.1 (0.4-2.0) Calcium 9.4 (8.4-10.2) mg/dL Total Bilirubin 0.40 (0.2-1.3) mg/dL AST 14 (14-36) U/L ALT 16 (0-35) U/L Alkaline Phosphatase 80 (38-126) U/L Serum Total Protein 7.7 (6.3-8.2) g/dL Albumin 4.4 (3.5-5.0) g/dL Amylase 41 (30-110) U/L Lipase 71 (23-300) U/L Urine Color YELLOW (YELLOW) Urine Appearance CLOUDY (CLEAR) Urine pH 5.0 (5-6) Ur Specific [place] 1.027 (1.005-1.025) Urine Protein 30 (Negative) Urine Ketones TRACE (NEGATIVE) Urine Blood LARGE (0-5) Elia/ul Urine Nitrite NEGATIVE (NEGATIVE) Urine Bilirubin NEGATIVE (NEGATIVE) Urine Urobilinogen NEGATIVE (0-1) mg/dL Ur Leukocyte Esterase NEGATIVE (NEGATIVE) Urine WBC (Auto) 11-15 (0-5) /HPF Urine RBC (Auto) 51-100 (0-2) /HPF U Hyaline Cast (Auto) 0-2 (0-2) /LPF U Epithel Cells (Auto) FEW (FEW) /HPF Urine Bacteria (Auto) RARE (NEGATIVE) /HPF Urine Mucus (Auto) MODERATE (NEGATIVE) /HPF Urine Culture Reflexed YES (NO) Urine Glucose NEGATIVE (NEGATIVE) mg/dL 02/25/19 Range/Units 19:45 WBC 10.0 (4.0-10.5) K/mm3 RBC 4.11 (4.1-5.4) M/mm3 Hgb 12.2 (12.0-16.0) gm/dl Hct 36.6 (35-47) % MCV 89.1 (78-100) fl MCH 29.7 (26-32) pg MCHC 33.3 (32-36) g/dl RDW 13.1 (11.5-14.0) % Plt Count 262 (150-450) K/mm3 MPV 9.6 H (6-9.5) fl Gran % 63.6 (36.0-66.0) % Eos # (Auto) 0.08 (0-0.5) Absolute Lymphs (auto) 2.51 (1.0-4.6) Absolute Monos (auto) 1.02 (0.0-1.3) Lymphocytes % 25.2 (24.0-44.0) % Monocytes % 10.2 (0.0-12.0) % Eosinophils % 0.8 (0.00-5.0) % Basophils % 0.2 (0.0-0.4) % Absolute Granulocytes 6.33 (1.4-6.9) Basophils # 0.02 (0-0.4) Sodium (137-145) mmol/L Potassium (3.5-5.1) mmol/L Chloride (98-107) mmol/L Carbon Dioxide (22-30) mmol/L Anion Gap (5-15) MEQ/L BUN (7-17) mg/dL Creatinine (0.52-1.04) mg/dL Estimated GFR ML/MIN Glucose (74-106) mg/dL Lactic Acid (0.4-2.0) Calcium (8.4-10.2) mg/dL Total Bilirubin (0.2-1.3) mg/dL AST (14-36) U/L ALT (0-35) U/L Alkaline Phosphatase (38-126) U/L Serum Total Protein (6.3-8.2) g/dL Albumin (3.5-5.0) g/dL Amylase (30-110) U/L Lipase (23-300) U/L Urine Color (YELLOW) Urine Appearance (CLEAR) Urine pH (5-6) Ur Specific [place] (1.005-1.025) Urine Protein (Negative) Urine Ketones (NEGATIVE) Urine Blood (0-5) Elia/ul Urine Nitrite (NEGATIVE) Urine Bilirubin (NEGATIVE) Urine Urobilinogen (0-1) mg/dL Ur Leukocyte Esterase (NEGATIVE) Urine WBC (Auto) (0-5) /HPF Urine RBC (Auto) (0-2) /HPF U Hyaline Cast (Auto) (0-2) /LPF U Epithel Cells (Auto) (FEW) /HPF Urine Bacteria (Auto) (NEGATIVE) /HPF Urine Mucus (Auto) (NEGATIVE) /HPF Urine Culture Reflexed (NO) Urine Glucose (NEGATIVE) mg/dL - Progress Progress: improved Progress Note: 11/08/18 22:52 The patient was given Dilaudid 1 mg 2, Zofran 4 mg, and 2 L of normal saline by IV. Patient was also given Phenergan and 5 mg by IM. Counseled pt/family regarding: diagnosis, rad results - Departure Time of Disposition: 22:53 Departure Disposition: Home Clinical Impression: Kidney stone on right side Condition: Stable Critical Care Time: No Referrals: JOSEPH BENDER [Primary Care Provider] - Additional Instructions: You have a small 2 mm stone in your distal right ureter next to your urinary bladder. You were given Dilaudid 1 mg twice, Zofran 4 mg, and fluids by IV in the ER. You were also given Phenergan 25 mg by IM. Take [place] one tablet every 6 hours as needed for pain. Take Zofran 4 mg ODT every 6 hours as needed for nausea and vomiting. Stay well-hydrated. Strain your urine and catch the stone. Bring the stone to your primary medical doctor. Prescriptions: Hydrocodone/APAP 5-325 Tab^^^ [[place] 5-325 Tablet^^^] 1 tab PO Q6HPRN PRN #10 tablet MDD 6 PRN Reason: Pain Ondansetron ODT 4 MG [Zofran Odt 4 mg] 4 mg PO Q6H PRN PRN #10 tab.rapdis PRN Reason: Nausea/Vomiting
[2018-11-08] MEDS ORDERED: Hydromorphone 1 mg/ml Ampule IV ONE ×2 (19:53→22:14)
[2018-11-08] MEDS ORDERED: Phenergan 25 MG INJ IM ONE (19:53)
[2018-11-08] MEDS ORDERED: Sodium Chloride 0.9% 1000 ML 1,000 ML IV STA ×2 (19:53→22:14)
[2018-11-08] MEDS ORDERED: Zofran 4 MG/2 ML VIAL IV ONE (19:55)
[2018-11-08] MEDS ORDERED: Hydromorphone 1 mg/ml Ampule ONE ×2 (19:59→22:27)
[2018-11-08] MEDS ORDERED: Phenergan 25 MG INJ ONE (19:59)
[2018-11-08] MEDS ORDERED: Zofran 4 MG/2 ML VIAL ONE (19:59)
[2018-11-08] MEDS ORDERED: Sodium Chloride 0.9% 1000 ML 1,000 ML ONE ×2 (20:00→22:27)
[2018-11-08 20:02] LABS: BASOPHIL % 0.2 % (0.0-0.4); Basophil (Absolute #) 0.02 (0-0.4); Eosinophil % 0.8 % (0.00-5.0); Eosinophil (Absolute #) 0.08 (0-0.5); Granulocyte Absolute (ANC) 6.33 (1.4-6.9); Granulocytes % 63.6 % (36.0-66.0); Hematocrit 36.6 % (35-47); Hemoglobin 12.2 gm/dl (12.0-16.0); Lymphocyte (Absolute #) 2.51 (1.0-4.6); Lymphocytes % 25.2 % (24.0-44.0); Mean Cell Volume 89.1 fl (78-100); Mean Corpuscular Hemoglobin 29.7 pg (26-32); Mean Corpuscular Hgb Concent. 33.3 g/dl (32-36); Mean Platelet Volume 9.6 fl (6-9.5); Monocyte (Absolute #) 1.02 (0.0-1.3); Monocytes % 10.2 % (0.0-12.0); Platelet Count 262 K/mm3 (150-450); Red Blood Count 4.11 M/mm3 (4.1-5.4); Red Cell Distribution Width 13.1 % (11.5-14.0)
[2018-11-08 20:10] LABS: Appearance CLOUDY (CLEAR); Bacteria RARE /HPF (NEGATIVE); Bilirubin NEGATIVE (NEGATIVE); Blood LARGE Ery/ul (0-5); Epithelial Cells FEW /HPF (FEW); Glucose NEGATIVE (NEGATIVE); Hyaline Casts 0-2 /LPF (0-2); Ketones TRACE (NEGATIVE); Leukocyte Esterase NEGATIVE (NEGATIVE); Mucus MODERATE /HPF (NEGATIVE); Nitrite NEGATIVE (NEGATIVE); Protein,Urine Dip 30 (Negative); RBC 51-100 /HPF (0-2); Specific Gravity 1.027 (1.005-1.025); Urobilinogen NEGATIVE mg/dL (0-1)
[2018-11-08 20:13] LABS: ALBUMIN 4.4 g/dL (3.5-5.0); ALKALINE PHOSPHATASE 80 U/L (38-126); AMYLASE 41 U/L (30-110); BLOOD UREA NITROGEN 24 mg/dL (7-17); CHLORIDE 106 mmol/L (98-107); Calcium 9.4 mg/dL (8.4-10.2); Carbon Dioxide 21 mmol/L (22-30); Creatinine 1 0.72 mg/dL (0.52-1.04); Glucose 113 mg/dL (74-106); LIPASE 71 U/L (23-300); Potassium 3.5 mmol/L (3.5-5.1); SGOT/AST 14 U/L (14-36); SGPT/ALT 16 U/L (0-35); SODIUM 137 mmol/L (137-145); Total Protein 7.7 g/dL (6.3-8.2)
[2018-11-08] MEDS ORDERED: NORCO 5/325 MG PO ONE (22:53)
[2018-11-08] MEDS ORDERED: NORCO 5/325 MG ONE (23:09)
[2018-11-08 23:26] VITALS: BP 123/72; PULSE 76; O2SAT 97
--- NOTE | 2018-11-09 08:35 | XRAY ---
Indication: Right flank/right lower quadrant pain. History renal stones. Multiple contiguous axial images obtained through the abdomen and pelvis without contrast using renal stone protocol. Comparison: January 07, 2017. Lung bases demonstrates minimal bibasilar atelectasis/scarring. No infiltrate or effusion. Heart is not enlarged. New 2 mm distal right ureter calculus approximately 2 cm proximal to the UVJ. The more proximal right ureter is prominent and there is mild hydronephrosis consistent with partial obstructive uropathy. Additional bilateral renal micro-calculi. Noncontrasted stomach and bowel loops appear nonobstructed. Normal appendix. Mild diffuse scattered colonic fecal debris. Again cholecystectomy and partial hysterectomy. No free fluid/air. Remaining liver, pancreas, spleen, adrenal glands, kidneys, ureters, bladder, and aorta appear unremarkable for noncontrast exam. Osseous structures intact. Stable large fatty supraumbilical ventral hernia. Impression: 1. New 2 mm distal right ureter calculus producing partial obstruction as detailed. Additional bilateral renal micro-calculi. 2. Mild fecal stasis without obstruction. 3. Stable large fatty supraumbilical ventral hernia. CT DI 28.13
== END 2018-11-08 23:25 | disposition home or self-care (01) ==
LOC: ED 19:25
DX: N20.0 Calculus of kidney (principal); I10 Essential (primary) hypertension; Z79.899 Other long term (current) drug therapy
CPT/HCPCS: 36000; 36415; 74176; 80053; 81001; 82150; 83605; 83690; 85025; 87086; 96360; 96361; 96372; 96374; 96375; 96376; 99284; J1170; J2405; J2550; A9270-GY

== ENCOUNTER 2020-07-06 06:38 | Emergency (ER) | payer BC ==
[2020-07-06] MEDS ORDERED: Sodium Chloride 0.9% 1000 ML 1,000 ML IV STA ×2 (07:24→10:48)
[2020-07-06] MEDS ORDERED: Zofran 4 MG/2 ML VIAL IV ONE ×2 (07:24→09:23)
[2020-07-06] MEDS ORDERED: TORAdol 30 mg Injection IV ONE (07:24)
[2020-07-06] MEDS ORDERED: Zofran 4 MG/2 ML VIAL ONE ×2 (07:25→10:43)
[2020-07-06] MEDS ORDERED: Sodium Chloride 0.9% 1000 ML 1,000 ML ONE ×2 (07:25→10:43)
[2020-07-06] MEDS ORDERED: TORAdol 30 mg Injection ONE (07:25)
--- NOTE | 2020-07-06 07:43 | ERPHSYRPT ---
- History of Present Illness Time Seen by Provider: 07/06/20 07:30 Source: patient Exam Limitations: no limitations Patient Subjective Stated Complaint: Pt states "I think I have another kidney stone." Triage Nursing Assessment: Pt presented alert and oriented X 3, skin pwd. Pt ambulates hunched over holding her right side. Pt unable to sit still, no apparent respiratory distress. Physician History: 39yo female with hx of kidney stones. 3am pain started at right flank and radiating to right lower abd. Hx of same pain inpast with kidney stone. No fever, NVD, URI sxs Timing/Duration: hour(s) (4) Activites at Onset: sleep Quality: sharpness, stabbing Onset Location: right flank Pain Radiation: RLQ Severity of Pain-Max: severe Severity of Pain-Current: moderate Prior abdominal problems: similar symptoms Sexual intercourse history: non-contributory Modifying Factors: Improves With: movement Associated Symptoms: abdominal pain Allergies/Adverse Reactions: oxycodone Allergy (Verified 11/08/18 19:48) Penicillins Allergy (Verified 11/08/18 19:48) Home Medications: SUMAtriptan succinate [Imitrex 50 mg] 50 mg PO UD 01/07/17 [History] Esomeprazole Magnesium [Nexium] 40 mg PO DAILY 02/13/17 [History] Lisinopril 10 mg [Zestril 10 MG] 20 mg PO DAILY 02/13/17 [History] hydroCHLOROthiazide [Hydrochlorothiazide] 12.5 mg PO DAILY 07/06/20 [History] Hx Tetanus, Diphtheria Vaccination/Date Given: Yes Hx Influenza Vaccination/Date Given: No Hx Pneumococcal Vaccination/Date Given: No Travel Risk - International Travel Have you traveled outside of the country in past 3 weeks: No - Coronavirus Screening Are you exhibiting any of the following symptoms?: No Close contact with a COVID-19 positive Pt in past 14-21 Days: No - Review of Systems Constitutional: No Fever, No Chills Eyes: No Symptoms Ears, Nose, & Throat: No Symptoms Respiratory: No Cough, No Dyspnea Cardiac: No Chest Pain, No Edema, No Syncope Abdominal/Gastrointestinal: Abdominal Pain, No Nausea, No Vomiting, No Diarrhea Genitourinary Symptoms: Flank Pain, No Dysuria Musculoskeletal: No Back Pain, No Neck Pain Skin: No Rash Neurological: No Dizziness, No Focal Weakness, No Sensory Changes Psychological: No Symptoms Endocrine: No Symptoms All Other Systems: Reviewed and Negative - Past Medical History Pertinent Past Medical History: Yes Neurological History: Migraines ENT History: No Pertinent History Cardiac History: Arrhythmia, Deep Vein Thrombosis, Hypertension, Myocardial Infarction ([place]), Other Respiratory History: No Pertinent History Endocrine Medical History: No Pertinent History Musculoskeletal History: No Pertinent History GI Medical History: GERD History: No Pertinent History Psycho-Social History: No Pertinent History Other Medical History: states heart murmur and valve problems - Past Surgical History Past Surgical History: Yes Neuro Surgical History: No Pertinent History Cardiac: No Pertinent History Respiratory: No Pertinent History Gastrointestinal: Cholecystectomy Female Surgical History: Hysterectomy, Tubal Ligation - Social History Smoking Status: Former smoker Exposure to second hand smoke: No Drug Use: none Patient Lives Alone: No - Female History Hx Last Menstrual Period: hysterectomy Hx Now: No - Nursing Vital Signs Nursing Vital Signs: Initial Vital Signs Temperature 97.8 F 07/06/20 07:08 Pulse Rate 70 07/06/20 07:08 Respiratory Rate 22 07/06/20 07:08 Blood Pressure 139/70 07/06/20 07:08 O2 Sat by Pulse Oximetry 98 07/06/20 07:08 Pain Scale Pain Intensity 5 - Physical Exam General Appearance: moderate distress, alert Eye Exam: PERRL/EOMI, eyes nml inspection Ears, Nose, Throat Exam: normal ENT inspection, TMs normal, pharynx normal, moist mucous membranes Neck Exam: normal inspection, non-tender, supple, full range of motion Respiratory Exam: normal breath sounds, lungs clear, No respiratory distress Cardiovascular Exam: regular rate/rhythm, normal heart sounds, normal peripheral pulses Gastrointestinal/Abdomen Exam: soft, No tenderness, No mass Back Exam: normal inspection, normal range of motion, No CVA tenderness, No vertebral tenderness Extremity Exam: normal inspection, normal range of motion, pelvis stable Neurologic Exam: alert, oriented x 3, cooperative, quality 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 II-XII nml as tested, normal mood/affect, sensation nml, No motor deficits Skin Exam: normal color, warm, dry Lymphatic Exam: No adenopathy SpO2: 98 Ordered Tests: Active Orders 24 hr Category Date Time Status IV Insertion STAT Care 07/06/20 07:36 Active ABDOMEN AND PELVIS W/0 CONTRAS [CT] Stat Exams 07/06/20 07:36 Completed BMP Stat Lab 07/06/20 07:36 Completed CBC W DIFF Stat Lab 07/06/20 07:36 Completed Hepatic Function Panel Stat Lab 07/06/20 07:36 Completed LIPASE Stat Lab 07/06/20 07:36 Completed PROTIME WITH INR Stat Lab 07/06/20 07:36 Completed UA W/RFX UR CULTURE Stat Lab 07/06/20 07:36 Completed Medication Summary Generic Name Dose Route Start Last Admin Trade Name Uday PRN Reason Stop Dose Admin Tamsulosin HCl 0.8 mg 07/06/20 10:00 07/06/20 10:45 Flomax 0.4 Mg PO 08/05/20 09:59 0.8 mg DAILY LILLIAM Administration Discontinued Medications Generic Name Dose Route Start Last Admin Trade Name Uday PRN Reason Stop Dose Admin Sodium Chloride 1,000 mls @ 999 mls/hr 07/06/20 07:24 07/06/20 07:26 Sodium Chloride 0.9% 1000 Ml IV 07/06/20 08:24 999 mls/hr .Q1H1M STA Administration Sodium Chloride Confirm 07/06/20 07:25 Sodium Chloride 0.9% 1000 Ml Administered 07/06/20 07:26 Dose 1,000 mls @ ud .ROUTE .STK-MED ONE Sodium Chloride 100 mls @ 100 mls/hr 07/06/20 09:29 07/06/20 10:53 Sodium Chloride 0.9% 100 Ml Ivpb IV 07/06/20 10:28 Not Given .Q1H ONE Sodium Chloride Confirm 07/06/20 10:43 Sodium Chloride 0.9% 1000 Ml Administered 07/06/20 10:44 Dose 1,000 mls @ ud .ROUTE .STK-MED ONE Sodium Chloride 1,000 mls @ 999 mls/hr 07/06/20 10:48 07/06/20 10:49 Sodium Chloride 0.9% 1000 Ml IV 07/06/20 11:48 999 mls/hr .Q1H1M STA Administration Ketorolac Tromethamine 30 mg 07/06/20 07:24 07/06/20 07:26 Toradol 30 Mg Injection IV 07/06/20 07:25 30 mg STAT ONE Administration Ketorolac Tromethamine Confirm 07/06/20 07:25 Toradol 30 Mg Injection Administered 07/06/20 07:26 Dose 30 mg .ROUTE .STK-MED ONE Morphine Sulfate 4 mg 07/06/20 09:23 07/06/20 10:46 Morphine Sulfate 4 Mg Inj IV 07/06/20 09:24 4 mg STAT ONE Administration Morphine Sulfate Confirm 07/06/20 10:43 Morphine Sulfate 4 Mg Inj Administered 07/06/20 10:44 Dose 4 mg .ROUTE .STK-MED ONE Ondansetron HCl 4 mg 07/06/20 07:24 07/06/20 07:26 Zofran 4 Mg/2 Ml Vial IV 07/06/20 07:25 4 mg STAT ONE Administration Ondansetron HCl Confirm 07/06/20 07:25 Zofran 4 Mg/2 Ml Vial Administered 07/06/20 07:26 Dose 4 mg .ROUTE .STK-MED ONE Ondansetron HCl 4 mg 07/06/20 09:23 07/06/20 10:46 Zofran 4 Mg/2 Ml Vial IV 07/06/20 09:24 4 mg STAT ONE Administration Ondansetron HCl Confirm 07/06/20 10:43 Zofran 4 Mg/2 Ml Vial Administered 07/06/20 10:44 Dose 4 mg .ROUTE .STK-MED ONE Lab/Rad Data: Laboratory Result Diagrams 07/06/20 07:36 07/06/20 07:36 Laboratory Results 07/06/20 07/06/20 07/06/20 Range/Units 07:36 07:36 07:36 WBC 6.8 (4.0-10.5) K/mm3 RBC 3.93 L (4.1-5.4) M/mm3 Hgb 11.7 L (12.0-16.0) gm/dl Hct 35.1 (35-47) % MCV 89.3 (78-100) fl MCH 29.8 (26-32) pg MCHC 33.3 (32-36) g/dl RDW 13.0 (11.5-14.0) % Plt Count 245 (150-450) K/mm3 MPV 9.3 (7.5-11.0) fl Gran % 54.1 (36.0-66.0) % Eos # (Auto) 0.14 (0-0.5) Absolute Lymphs (auto) 2.24 (1.0-4.6) Absolute Monos (auto) 0.72 (0.0-1.3) Lymphocytes % 32.8 (24.0-44.0) % Monocytes % 10.6 (0.0-12.0) % Eosinophils % 2.1 (0.00-5.0) % Basophils % 0.4 (0.0-0.4) % Absolute Granulocytes 3.69 (1.4-6.9) Basophils # 0.03 (0-0.4) PT 13.5 H (9.95-12.35) SECONDS INR 1.19 (0.8-3.0) Sodium 135 L (137-145) mmol/L Potassium 4.1 (3.5-5.1) mmol/L Chloride 106 (98-107) mmol/L Carbon Dioxide 21 L (22-30) mmol/L Anion Gap 12.2 (5-15) MEQ/L BUN 25 H (7-17) mg/dL Creatinine 0.90 (0.52-1.04) mg/dL Estimated GFR > 60.0 ML/MIN Glucose 116 H (74-106) mg/dL Calcium 9.3 (8.4-10.2) mg/dL Total Bilirubin 0.40 (0.2-1.3) mg/dL Direct Bilirubin 0 (0.0-0.4) mg/dL AST 18 (14-36) U/L ALT 18 (0-35) U/L Alkaline Phosphatase 65 (38-126) U/L Serum Total Protein 7.0 (6.3-8.2) g/dL Albumin 4.1 (3.5-5.0) g/dL Lipase 78 (23-300) U/L Urine Color (YELLOW) Urine Appearance (CLEAR) Urine pH (5-6) Ur Specific [place] (1.005-1.025) Urine Protein (Negative) Urine Ketones (NEGATIVE) Urine Blood (0-5) Elia/ul Urine Nitrite (NEGATIVE) Urine Bilirubin (NEGATIVE) Urine Urobilinogen (0-1) mg/dL Ur Leukocyte Esterase (NEGATIVE) Urine WBC (Auto) (0-5) /HPF Urine RBC (Auto) (0-2) /HPF U Epithel Cells (Auto) (FEW) /HPF Urine Bacteria (Auto) (NEGATIVE) /HPF Urine Mucus (Auto) (NEGATIVE) /HPF Urine Culture Reflexed (NO) Urine Glucose (NEGATIVE) mg/dL 07/06/20 Range/Units 07:36 WBC (4.0-10.5) K/mm3 RBC (4.1-5.4) M/mm3 Hgb (12.0-16.0) gm/dl Hct (35-47) % MCV (78-100) fl MCH (26-32) pg MCHC (32-36) g/dl RDW (11.5-14.0) % Plt Count (150-450) K/mm3 MPV (7.5-11.0) fl Gran % (36.0-66.0) % Eos # (Auto) (0-0.5) Absolute Lymphs (auto) (1.0-4.6) Absolute Monos (auto) (0.0-1.3) Lymphocytes % (24.0-44.0) % Monocytes % (0.0-12.0) % Eosinophils % (0.00-5.0) % Basophils % (0.0-0.4) % Absolute Granulocytes (1.4-6.9) Basophils # (0-0.4) PT (9.95-12.35) SECONDS INR (0.8-3.0) Sodium (137-145) mmol/L Potassium (3.5-5.1) mmol/L Chloride (98-107) mmol/L Carbon Dioxide (22-30) mmol/L Anion Gap (5-15) MEQ/L BUN (7-17) mg/dL Creatinine (0.52-1.04) mg/dL Estimated GFR ML/MIN Glucose (74-106) mg/dL Calcium (8.4-10.2) mg/dL Total Bilirubin (0.2-1.3) mg/dL Direct Bilirubin (0.0-0.4) mg/dL AST (14-36) U/L ALT (0-35) U/L Alkaline Phosphatase (38-126) U/L Serum Total Protein (6.3-8.2) g/dL Albumin (3.5-5.0) g/dL Lipase (23-300) U/L Urine Color YELLOW (YELLOW) Urine Appearance SLIGHTLY CLOUDY (CLEAR) Urine pH 5.0 (5-6) Ur Specific [place] 1.019 (1.005-1.025) Urine Protein NEGATIVE (Negative) Urine Ketones NEGATIVE (NEGATIVE) Urine Blood MODERATE (0-5) Elia/ul Urine Nitrite NEGATIVE (NEGATIVE) Urine Bilirubin NEGATIVE (NEGATIVE) Urine Urobilinogen NEGATIVE (0-1) mg/dL Ur Leukocyte Esterase NEGATIVE (NEGATIVE) Urine WBC (Auto) NONE (0-5) /HPF Urine RBC (Auto) 16-25 (0-2) /HPF U Epithel Cells (Auto) RARE (FEW) /HPF Urine Bacteria (Auto) NONE (NEGATIVE) /HPF Urine Mucus (Auto) SLIGHT (NEGATIVE) /HPF Urine Culture Reflexed NO (NO) Urine Glucose NEGATIVE (NEGATIVE) mg/dL - Progress Progress: improved Progress Note: 07/06/20 12:[address] scan. Probable kidney stone. Ct scan shows 2-3mm stone, right distal ureter with minimal obstruction Right 7cm ovarian cyst Toradol did not help Morphine helped. Pt feels ok to go home Followup urology and [facility] DC home Blood Culture(s) Obtained: No Antibiotics given: No Counseled pt/family regarding: lab results, diagnosis, need for follow-up, rad results - Departure Departure Disposition: Home Clinical Impression: Kidney stone on right side, Ovarian cyst Condition: Stable Critical Care Time: No Referrals: DOCTOR,NO FAMILY [Primary Care Provider] - BREANA MCKEON [COURTESY STAFF] - Instructions: Kidney Stones (DC), Ovarian Cysts Additional Instructions: Take meds as prescribed Hydration Follow up with [facility] for ovarian cyst Follow up with Urology for kidney stone Return to ER if worse. Prescriptions: Hydrocodone/APAP 5-325 Tab^^^ [Crook 5-325 Tablet^^^] 1 tab PO Q6HPRN PRN #10 tablet MDD 6 PRN Reason: Pain Ondansetron ODT 4 MG [Zofran Odt 4 mg] 4 mg PO Q6H PRN PRN #10 tab.rapdis PRN Reason: Vomiting Tamsulosin HCl 0.4 mg [Flomax 0.4 MG] 0.4 mg PO DAILY #5 cap
[2020-07-06 07:47] LABS: Absolute Neutrophil Ct (ANC) 3.69 (1.4-6.9); BASOPHIL % 0.4 % (0.0-0.4); Basophil (Absolute #) 0.03 (0-0.4); Eosinophil % 2.1 % (0.00-5.0); Eosinophil (Absolute #) 0.14 (0-0.5); Hematocrit 35.1 % (35-47); Hemoglobin 11.7 gm/dl (12.0-16.0); Lymphocyte (Absolute #) 2.24 (1.0-4.6); Lymphocytes % 32.8 % (24.0-44.0); Mean Cell Volume 89.3 fl (78-100); Mean Corpuscular Hemoglobin 29.8 pg (26-32); Mean Corpuscular Hgb Concent. 33.3 g/dl (32-36); Mean Platelet Volume 9.3 fl (7.5-11.0); Monocyte (Absolute #) 0.72 (0.0-1.3); Monocytes % 10.6 % (0.0-12.0); Neutrophil % 54.1 % (36.0-66.0); Platelet Count 245 K/mm3 (150-450); Red Blood Count 3.93 M/mm3 (4.1-5.4); White Blood Count 6.8 K/mm3 (4.0-10.5)
[2020-07-06 07:54] LABS: Appearance SLIGHTLY CLOUDY (CLEAR); Bilirubin NEGATIVE (NEGATIVE); Blood MODERATE Ery/ul (0-5); Epithelial Cells RARE /HPF (FEW); Glucose NEGATIVE (NEGATIVE); Ketones NEGATIVE (NEGATIVE); Leukocyte Esterase NEGATIVE (NEGATIVE); Mucus SLIGHT /HPF (NEGATIVE); Nitrite NEGATIVE (NEGATIVE); Protein,Urine Dip NEGATIVE (Negative); Specific Gravity 1.019 (1.005-1.025); Urobilinogen NEGATIVE mg/dL (0-1)
[2020-07-06 08:19] LABS: INR 1.19 (0.8-3.0); PROTIME 13.5 SECONDS (9.95-12.35)
[2020-07-06 08:50] LABS: ALBUMIN 4.1 g/dL (3.5-5.0); ALKALINE PHOSPHATASE 65 U/L (38-126); ANION GAP 12.2 MEQ/L (5-15); BLOOD UREA NITROGEN 25 mg/dL (7-17); CHLORIDE 106 mmol/L (98-107); Calcium 9.3 mg/dL (8.4-10.2); Carbon Dioxide 21 mmol/L (22-30); EST GLOMERULAR FILTRATION RATE > 60.0 ML/MIN; Glucose 116 mg/dL (74-106); LIPASE 78 U/L (23-300); Potassium 4.1 mmol/L (3.5-5.1); SGOT/AST 18 U/L (14-36); SGPT/ALT 18 U/L (0-35); SODIUM 135 mmol/L (137-145)
--- NOTE | 2020-07-06 08:53 | XRAY ---
Indication: Right flank pain. Multiple contiguous images obtained through the abdomen and pelvis without contrast using renal stone protocol. Comparison: November 08, 2018. Lung bases demonstrates minimal left base fibrosis/scarring. No infiltrate or effusion. Heart is not enlarged. Distal right ureter demonstrates new 2-3 mm calculus approximately 1 cm proximal to the UVJ. Proximal right ureter prominent up to 8 mm along with mild hydronephrosis consistent with partial obstructive uropathy. There remains a few additional bilateral renal micro-calculi, largest left mid renal calyx measuring 3-4 mm. Noncontrasted stomach and bowel loops appear nonobstructed. Stable cholecystectomy and partial hysterectomy. New 7 cm left ovary cyst. No free fluid/air. Remaining liver, pancreas, spleen, adrenal glands, kidneys, ureters, bladder, and aorta appear unremarkable for noncontrast exam. Osseous structures intact. Stable large fatty supraumbilical ventral hernia. Impression: 1. New 2-3 mm distal right ureteral calculus producing partial obstruction as detailed. Additional bilateral renal micro-calculi. 2. New 7 cm left ovary cyst. Pelvic sonogram may yield further information. 3. Stable large fatty supraumbilical ventral hernia.
[2020-07-06 08:54] LABS: Direct Bilirubin 0 mg/dL (0.0-0.4)
[2020-07-06] MEDS ORDERED: MORPHINE SULFATE 4 MG INJ IV ONE (09:23)
[2020-07-06] MEDS ORDERED: Sodium Chloride 0.9% 100 ML IVPB 100 ML IV ONE (09:29)
[2020-07-06] MEDS ORDERED: Flomax 0.4 MG PO SCH (10:00)
[2020-07-06] MEDS ORDERED: MORPHINE SULFATE 4 MG INJ ONE (10:43)
[2020-07-06] MEDS ORDERED: Flomax 0.4 MG ONE (10:43)
[2020-07-06 12:20] VITALS: O2SAT 98
[2020-07-06 12:30] VITALS: BP 113/56; PULSE 79
== END 2020-07-06 12:45 | disposition home or self-care (01) ==
LOC: ED 06:38
DX: N20.0 Calculus of kidney (principal); N83.209 Unspecified ovarian cyst, unspecified side
CPT/HCPCS: 36000; 36415; 74176; 80048; 80076; 81001; 83690; 85025; 85610; 96374; 96375; 96376; 99284; J1885; J2270; J2405; A9270-GY

== ENCOUNTER 2020-09-06 14:00 | Emergency (ER) | payer BC ==
[2020-09-06 14:16] VITALS: O2SAT 98
[2020-09-06] MEDS ORDERED: MORPHINE SULFATE 4 MG INJ IV ONE (14:16)
[2020-09-06] MEDS ORDERED: Zofran 4 MG/2 ML VIAL IV ONE (14:16)
[2020-09-06] MEDS ORDERED: Sodium Chloride 0.9% 1000 ML 1,000 ML IV STA (14:16)
[2020-09-06] MEDS ORDERED: Zofran 4 MG/2 ML VIAL ONE (14:28)
[2020-09-06] MEDS ORDERED: Sodium Chloride 0.9% 1000 ML 1,000 ML ONE (14:29)
[2020-09-06] MEDS ORDERED: MORPHINE SULFATE 4 MG INJ ONE (14:29)
[2020-09-06 14:32] LABS: Absolute Neutrophil Ct (ANC) 4.73 (1.4-6.9); BASOPHIL % 0.3 % (0.0-0.4); Basophil (Absolute #) 0.02 (0-0.4); Eosinophil % 1.5 % (0.00-5.0); Eosinophil (Absolute #) 0.12 (0-0.5); Hemoglobin 12.1 gm/dl (12.0-16.0); Lymphocyte (Absolute #) 2.38 (1.0-4.6); Lymphocytes % 30.1 % (24.0-44.0); Mean Cell Volume 88.9 fl (78-100); Mean Corpuscular Hemoglobin 29.1 pg (26-32); Mean Corpuscular Hgb Concent. 32.7 g/dl (32-36); Mean Platelet Volume 9.1 fl (7.5-11.0); Monocyte (Absolute #) 0.66 (0.0-1.3); Monocytes % 8.3 % (0.0-12.0); Neutrophil % 59.8 % (36.0-66.0); Platelet Count 244 K/mm3 (150-450); Red Blood Count 4.16 M/mm3 (4.1-5.4); Red Cell Distribution Width 13.8 % (11.5-14.0); White Blood Count 7.9 K/mm3 (4.0-10.5)
[2020-09-06 14:35] LABS: Appearance SLIGHTLY CLOUDY (CLEAR); Bacteria RARE /HPF (NEGATIVE); Bilirubin NEGATIVE (NEGATIVE); Blood NEGATIVE Ery/ul (0-5); Epithelial Cells RARE /HPF (FEW); Glucose NEGATIVE (NEGATIVE); Ketones NEGATIVE (NEGATIVE); Leukocyte Esterase NEGATIVE (NEGATIVE); Mucus SLIGHT /HPF (NEGATIVE); Nitrite NEGATIVE (NEGATIVE); Protein,Urine Dip NEGATIVE (Negative); Specific Gravity 1.021 (1.005-1.025); Urobilinogen NEGATIVE mg/dL (0-1)
[2020-09-06 14:45] LABS: ALBUMIN 4.3 g/dL (3.5-5.0); ALKALINE PHOSPHATASE 63 U/L (38-126); ANION GAP 11.1 MEQ/L (5-15); BLOOD UREA NITROGEN 19 mg/dL (7-17); CHLORIDE 104 mmol/L (98-107); Calcium 9.4 mg/dL (8.4-10.2); Carbon Dioxide 24 mmol/L (22-30); Creatinine 1 0.68 mg/dL (0.52-1.04); EST GLOMERULAR FILTRATION RATE > 60.0 ML/MIN; Glucose 115 mg/dL (74-106); LIPASE 80 U/L (23-300); Potassium 3.7 mmol/L (3.5-5.1); SGOT/AST 21 U/L (14-36); SGPT/ALT 18 U/L (0-35); SODIUM 135 mmol/L (137-145); Total Protein 7.8 g/dL (6.3-8.2)
--- NOTE | 2020-09-06 15:13 | XRAY ---
Indication: Abdomen pain. History kidney stones. Multiple contiguous axial images obtained through the abdomen and pelvis without contrast using renal stone protocol. Comparison: July 06, 2020. Lung bases again demonstrates minimal left base fibrosis/scarring. No infiltrate or effusion. Heart is not enlarged. There remains a few bilateral renal microcalculi, 3 in the left kidney and 1 in the right kidney. Urinary bladder demonstrates new 3 mm midline calculus posteriorly. Right ureter is mildly prominent presumed from recent passage of said calculus. Noncontrasted stomach and bowel loops remain nonobstructed. Normal appendix. Cholecystectomy and partial hysterectomy reported. No free fluid/air. Remaining liver, pancreas, spleen, adrenal glands, kidneys, ureters, bladder, and aorta appear unremarkable for noncontrast exam. Osseous structures remain intact. Stable large fatty supraumbilical ventral hernia. Impression: 1. New urinary bladder microcalculus presumed from right kidney. Again additional bilateral renal microcalculi. 2. Stable large fatty supraumbilical ventral hernia. 3. Remaining CT abdomen/pelvis without contrast exam is negative.
[2020-09-06 15:19] VITALS: BP 90/65; PULSE 63
--- NOTE | 2020-09-06 15:28 | ERPHSYRPT ---
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 Patient A+O X 3. Patient's skin pink, warm and dry. Patient complains of lower right sided abdominal pain constant sharp pain 5/10 that started this am. Patient also states she is having trouble urinating. Abdomen soft and round with BS X 4. Physician History: 39 years old female with history of kidney stones in the past, hypertension, hyperlipidemia presented in the ER with chief complaint of right lower q uadrant/suprapubic area pain sudden onset this morning, moderate to severe intensity, aggravated with movements and palpation and associated with difficulty urination but denies any hematuria or increased frequency/urgency. Patient also reported having mild nausea but no vomiting. Denies fever or chills. Timing/Duration: today, sudden, worse Activities at Onset: rest Quality: sharpness Abdominal Pain Onset Location: RLQ, suprapubic, flank Pain Radiation: no radiation Severity of Pain-Max: severe Severity of Pain-Current: moderate Modifying Factors: Worsens With: movement, palpation Associated Symptoms: nausea Previous symptoms: same symptoms as today Allergies/Adverse Reactions: oxycodone Allergy (Verified 09/06/20 14:09) Penicillins Allergy (Verified 09/06/20 14:09) Home Medications: SUMAtriptan succinate [Imitrex 50 mg] 50 mg PO UD 01/07/17 [History] Esomeprazole Magnesium [Nexium] 40 mg PO DAILY 02/13/17 [History] Lisinopril 10 mg [Zestril 10 MG] 20 mg PO DAILY 02/13/17 [History] hydroCHLOROthiazide [Hydrochlorothiazide] 12.5 mg PO DAILY 07/06/20 [History] Hx Tetanus, Diphtheria Vaccination/Date Given: Yes Hx Influenza Vaccination/Date Given: No Hx Pneumococcal Vaccination/Date Given: No Immunizations Up to Date: Yes Travel Risk - International Travel Have you traveled outside of the country in past 3 weeks: No - Coronavirus Screening Are you exhibiting any of the following symptoms?: No - Review of Systems Constitutional: No Symptoms Eyes: No Symptoms Ears, Nose, & Throat: No Symptoms Respiratory: No Symptoms Cardiac: No Symptoms Abdominal/Gastrointestinal: Abdominal Pain, Nausea Genitourinary Symptoms: Dysuria Musculoskeletal: No Symptoms Skin: No Symptoms Neurological: No Symptoms Psychological: No Symptoms Endocrine: No Symptoms - Past Medical History Pertinent Past Medical History: Yes Neurological History: Migraines ENT History: No Pertinent History Cardiac History: Arrhythmia, Deep Vein Thrombosis, Hypertension, Myocardial Infarction ([place]), Other Respiratory History: No Pertinent History Endocrine Medical History: No Pertinent History Musculoskeletal History: No Pertinent History GI Medical History: GERD History: No Pertinent History Psycho-Social History: No Pertinent History Other Medical History: states heart murmur and valve problems - Past Surgical History Past Surgical History: Yes Neuro Surgical History: No Pertinent History Cardiac: No Pertinent History Respiratory: No Pertinent History Gastrointestinal: Cholecystectomy Female Surgical History: Hysterectomy, Tubal Ligation - Social History Smoking Status: Former smoker Exposure to second hand smoke: No Drug Use: none Patient Lives Alone: No - Female History Hx Last Menstrual Period: hysterectomy Hx Now: (UNKN) - Nursing Vital Signs Nursing Vital Signs: Initial Vital Signs Temperature 97.5 F 09/06/20 14:11 Pulse Rate 71 09/06/20 14:11 Respiratory Rate 18 09/06/20 14:11 Blood Pressure 136/86 09/06/20 14:11 O2 Sat by Pulse Oximetry 98 09/06/20 14:11 Pain Scale Pain Intensity 5 - Physical Exam General Appearance: no apparent distress Ears, Nose, Throat Exam: normal ENT inspection, TMs normal, pharynx normal Neck Exam: normal inspection, non-tender, supple, full range of motion Respiratory Exam: normal breath sounds, lungs clear (S the last 1 out of 5 laboratory positive gurjit lopez thank you) Cardiovascular Exam: regular rate/rhythm, normal heart sounds Gastrointestinal/Abdomen Exam: soft, normal bowel sounds, tenderness (Right lower quadrant/suprapubic area. No rebound tenderness.) Back Exam: normal inspection, normal range of motion Extremity Exam: normal inspection, normal range of motion Neurologic Exam: alert, oriented x 3, cooperative Skin Exam: normal color SpO2 Interpretation: normal SpO2: 98 O2 Delivery: Room Air Ordered Tests: Active Orders 24 hr Category Date Time Status IV Insertion STAT Care 09/06/20 14:16 Active ABDOMEN AND PELVIS W/0 CONTRAS [CT] Stat Exams 09/06/20 14:16 Completed CBC W DIFF Stat Lab 09/06/20 14:25 Completed CMP Stat Lab 09/06/20 14:25 Completed CULTURE,URINE Stat Lab 09/06/20 14:27 Received HCG,QUALITATIVE URINE Stat Lab 09/06/20 14:27 Completed LIPASE Stat Lab 09/06/20 14:25 Completed UA W/RFX UR CULTURE Stat Lab 09/06/20 14:27 Completed Medication Summary Discontinued Medications Generic Name Dose Route Start Last Admin Trade Name Uday PRN Reason Stop Dose Admin Sodium Chloride 1,000 mls @ 999 mls/hr 09/06/20 14:16 09/06/20 15:35 Sodium Chloride 0.9% 1000 Ml IV 09/06/20 15:16 Infused .Q1H1M STA Infusion Sodium Chloride Confirm 09/06/20 14:29 Sodium Chloride 0.9% 1000 Ml Administered 09/06/20 14:30 Dose 1,000 mls @ ud .ROUTE .STK-MED ONE Morphine Sulfate 4 mg 09/06/20 14:16 09/06/20 14:30 Morphine Sulfate 4 Mg Inj IV 09/06/20 14:17 4 mg STAT ONE Administration Morphine Sulfate Confirm 09/06/20 14:29 Morphine Sulfate 4 Mg Inj Administered 09/06/20 14:30 Dose 4 mg .ROUTE .STK-MED ONE Ondansetron HCl 4 mg 09/06/20 14:16 09/06/20 14:30 Zofran 4 Mg/2 Ml Vial IV 09/06/20 14:17 4 mg STAT ONE Administration Ondansetron HCl Confirm 09/06/20 14:28 Zofran 4 Mg/2 Ml Vial Administered 09/06/20 14:29 Dose 4 mg .ROUTE .STK-MED ONE Lab/Rad Data: Laboratory Result Diagrams 09/06/20 14:25 09/06/20 14:25 Laboratory Results 09/06/20 09/06/20 09/06/20 Range/Units 14:27 14:27 14:25 WBC (4.0-10.5) K/mm3 RBC (4.1-5.4) M/mm3 Hgb (12.0-16.0) gm/dl Hct (35-47) % MCV (78-100) fl MCH (26-32) pg MCHC (32-36) g/dl RDW (11.5-14.0) % Plt Count (150-450) K/mm3 MPV (7.5-11.0) fl Gran % (36.0-66.0) % Eos # (Auto) (0-0.5) Absolute Lymphs (auto) (1.0-4.6) Absolute Monos (auto) (0.0-1.3) Lymphocytes % (24.0-44.0) % Monocytes % (0.0-12.0) % Eosinophils % (0.00-5.0) % Basophils % (0.0-0.4) % Absolute Granulocytes (1.4-6.9) Basophils # (0-0.4) Sodium 135 L (137-145) mmol/L Potassium 3.7 (3.5-5.1) mmol/L Chloride 104 (98-107) mmol/L Carbon Dioxide 24 (22-30) mmol/L Anion Gap 11.1 (5-15) MEQ/L BUN 19 H (7-17) mg/dL Creatinine 0.68 (0.52-1.04) mg/dL Estimated GFR > 60.0 ML/MIN Glucose 115 H (74-106) mg/dL Calcium 9.4 (8.4-10.2) mg/dL Total Bilirubin 0.30 (0.2-1.3) mg/dL AST 21 (14-36) U/L ALT 18 (0-35) U/L Alkaline Phosphatase 63 (38-126) U/L Serum Total Protein 7.8 (6.3-8.2) g/dL Albumin 4.3 (3.5-5.0) g/dL Lipase 80 (23-300) U/L Urine Color YELLOW (YELLOW) Urine Appearance SLIGHTLY CLOUDY (CLEAR) Urine pH 5.0 (5-6) Ur Specific [place] 1.021 (1.005-1.025) Urine Protein NEGATIVE (Negative) Urine Ketones NEGATIVE (NEGATIVE) Urine Blood NEGATIVE (0-5) Elia/ul Urine Nitrite NEGATIVE (NEGATIVE) Urine Bilirubin NEGATIVE (NEGATIVE) Urine Urobilinogen NEGATIVE (0-1) mg/dL Ur Leukocyte Esterase NEGATIVE (NEGATIVE) Urine WBC (Auto) 3-5 (0-5) /HPF Urine RBC (Auto) 3-5 (0-2) /HPF U Epithel Cells (Auto) RARE (FEW) /HPF Urine Bacteria (Auto) RARE (NEGATIVE) /HPF Urine Mucus (Auto) SLIGHT (NEGATIVE) /HPF Urine Culture Reflexed YES (NO) Urine Glucose NEGATIVE (NEGATIVE) mg/dL Urine HCG, Qual NEGATIVE (Negative) 09/06/20 Range/Units 14:25 WBC 7.9 (4.0-10.5) K/mm3 RBC 4.16 (4.1-5.4) M/mm3 Hgb 12.1 (12.0-16.0) gm/dl Hct 37.0 (35-47) % MCV 88.9 (78-100) fl MCH 29.1 (26-32) pg MCHC 32.7 (32-36) g/dl RDW 13.8 (11.5-14.0) % Plt Count 244 (150-450) K/mm3 MPV 9.1 (7.5-11.0) fl Gran % 59.8 (36.0-66.0) % Eos # (Auto) 0.12 (0-0.5) Absolute Lymphs (auto) 2.38 (1.0-4.6) Absolute Monos (auto) 0.66 (0.0-1.3) Lymphocytes % 30.1 (24.0-44.0) % Monocytes % 8.3 (0.0-12.0) % Eosinophils % 1.5 (0.00-5.0) % Basophils % 0.3 (0.0-0.4) % Absolute Granulocytes 4.73 (1.4-6.9) Basophils # 0.02 (0-0.4) Sodium (137-145) mmol/L Potassium (3.5-5.1) mmol/L Chloride (98-107) mmol/L Carbon Dioxide (22-30) mmol/L Anion Gap (5-15) MEQ/L BUN (7-17) mg/dL Creatinine (0.52-1.04) mg/dL Estimated GFR ML/MIN Glucose (74-106) mg/dL Calcium (8.4-10.2) mg/dL Total Bilirubin (0.2-1.3) mg/dL AST (14-36) U/L ALT (0-35) U/L Alkaline Phosphatase (38-126) U/L Serum Total Protein (6.3-8.2) g/dL Albumin (3.5-5.0) g/dL Lipase (23-300) U/L Urine Color (YELLOW) Urine Appearance (CLEAR) Urine pH (5-6) Ur Specific [place] (1.005-1.025) Urine Protein (Negative) Urine Ketones (NEGATIVE) Urine Blood (0-5) Elia/ul Urine Nitrite (NEGATIVE) Urine Bilirubin (NEGATIVE) Urine Urobilinogen (0-1) mg/dL Ur Leukocyte Esterase (NEGATIVE) Urine WBC (Auto) (0-5) /HPF Urine RBC (Auto) (0-2) /HPF U Epithel Cells (Auto) (FEW) /HPF Urine Bacteria (Auto) (NEGATIVE) /HPF Urine Mucus (Auto) (NEGATIVE) /HPF Urine Culture Reflexed (NO) Urine Glucose (NEGATIVE) mg/dL Urine HCG, Qual (Negative) - Progress Progress: improved, re-examined Progress Note: 09/06/20 15:35 She is given fluid and symptomatic treatment for pain, on reevaluation feeling better. She has a unremarkable lab work in the ER grossly. CT showed stones in the bladder. With no stone in the ureter causing obstruction and no signs of pyelonephritis etc. She does not have UTI. She is advised to take Tylenol ibuprofen as needed and follow-up outpatient with primary care and urology for reevaluation. At this point do not think she needs any further work-up and stable for discharge. Counseled pt/family regarding: lab results, diagnosis, need for follow-up, rad results - Departure Departure Disposition: Home Clinical Impression: Kidney stone on right side Condition: Stable Critical Care Time: No Referrals: SAI IYER NP [Primary Care Provider] - Follow Up with PCP/3 days BREANA MCKEON [COURTESY STAFF] - (1 week for re evaluation) Instructions: Acute Abdomen (Belly Pain), Adult (DC), Kidney Stones in Adults Additional Instructions: Take Tylenol/ibuprofen as needed for pain. Drink plenty of fluids. Follow-up with primary care and urology for reevaluation. Return to ER for any worsening pain or if develop vomiting/fever chills etc. Prescriptions: Ibuprofen 600 mg PO Q6HPRN PRN 10 Days #20 tablet PRN Reason: Pain
== END 2020-09-06 16:39 | disposition home or self-care (01) ==
LOC: ED 14:00
DX: N20.0 Calculus of kidney (principal); I10 Essential (primary) hypertension; E78.5 Hyperlipidemia, unspecified; Z79.899 Other long term (current) drug therapy; I25.2 Old myocardial infarction
CPT/HCPCS: 36000; 36415; 74176; 80053; 81001; 83690; 84703; 85025; 87086; 96360; 96374; 96375; 99284; J2270; J2405

== ENCOUNTER 2021-07-11 18:10 | Emergency (ER) | payer BC ==
[2021-07-11 19:38] VITALS: BP 110/78; PULSE 80
[2021-07-11 19:42] VITALS: O2SAT 97
--- NOTE | 2021-07-11 19:42 | ERPHSYRPT ---
- History of Present Illness Time Seen by Provider: 07/11/21 19:04 Source: patient Exam Limitations: no limitations Patient Subjective Stated Complaint: Patient states she cut her hand on a piece of glass when washing dishes. Triage Nursing Assessment: Patient ambulated back to room in ED. She is alert and oriented and answering questions appropriately. Patient has a small cut on her right hand, second nuckle area. Cut measures 1.1cm X 0.2cm X 0.1cm. No active bleeding at this time. Area is clean and patient was holding gauze over area upon arrival to ED with minimal blood noted on gauze. Surrounding skin is C/D/I. Physician History: 40 years old right-handed dominant female up-to-date with tetanus presented in the ER with chief complaint of laceration right hand second metacarpal phalangeal joint area while she was doing dishes and a glass broke. Was bleeding initially but stopped with applying pressure. Superficial cut without any difficulty movements of finger. Minimal pain with movements and better with being still. No distal numbness tingling or weakness. No injury anywhere else. Timing/Duration: hour(s) (1), sudden, improved Quality: burning Severity: mild Location: hands Possible Causes: other Associated Symptoms: denies symptoms Allergies/Adverse Reactions: oxycodone Allergy (Verified 07/11/21 18:19) Penicillins Allergy (Verified 07/11/21 18:19) Home Medications: SUMAtriptan succinate [Imitrex 50 mg] 50 mg PO UD 01/07/17 [History] Esomeprazole Magnesium [Nexium] 40 mg PO DAILY 02/13/17 [History] Lisinopril 10 mg [Zestril 10 MG] 20 mg PO DAILY 02/13/17 [History] hydroCHLOROthiazide [Hydrochlorothiazide] 12.5 mg PO DAILY 07/06/20 [History] Hx Tetanus, Diphtheria Vaccination/Date Given: Yes Hx Influenza Vaccination/Date Given: No Hx Pneumococcal Vaccination/Date Given: No Immunizations Up to Date: Yes Travel Risk - International Travel Have you traveled outside of the country in past 3 weeks: No - Coronavirus Screening Are you exhibiting any of the following symptoms?: No Close contact with a COVID-19 positive Pt in past 14-21 Days: No - Vaccine Status Have you recieved a Covid-19 vaccination: No - Review of Systems Constitutional: No Symptoms Respiratory: No Symptoms Cardiac: No Symptoms Musculoskeletal: Injury Neurological: No Symptoms Psychological: No Symptoms Hematologic/Lymphatic: No Symptoms - Past Medical History Pertinent Past Medical History: Yes Neurological History: Migraines ENT History: No Pertinent History Cardiac History: Arrhythmia, Deep Vein Thrombosis, Hypertension, Myocardial Infarction ([place]), Other Respiratory History: No Pertinent History Endocrine Medical History: No Pertinent History Musculoskeletal History: No Pertinent History GI Medical History: GERD History: No Pertinent History Psycho-Social History: No Pertinent History Other Medical History: states heart murmur and valve problems - Past Surgical History Past Surgical History: Yes Neuro Surgical History: No Pertinent History Cardiac: No Pertinent History Respiratory: No Pertinent History Gastrointestinal: Cholecystectomy Female Surgical History: Hysterectomy, Tubal Ligation - Social History Smoking Status: Former smoker Exposure to second hand smoke: No Drug Use: none Patient Lives Alone: No - Female History Hx Now: No - Nursing Vital Signs Nursing Vital Signs: Initial Vital Signs Temperature 97.4 F 07/11/21 18:20 Pulse Rate 88 07/11/21 18:20 Respiratory Rate 22 07/11/21 18:20 Blood Pressure 115/81 07/11/21 18:20 O2 Sat by Pulse Oximetry 97 07/11/21 18:20 Pain Scale Pain Intensity 1 - Physical Exam General Appearance: no apparent distress, alert Ears, Nose, Throat Exam: normal ENT inspection Neck Exam: normal inspection Respiratory Exam: normal breath sounds, lungs clear Cardiovascular Exam: regular rate/rhythm, normal heart sounds Extremity Exam: normal range of motion, other (1 cm superficial laceration at metacarpophalangeal joint of right index with intact range of motion. Distal neurovascular well intact.) Neurologic Exam: alert, oriented x 3, cooperative Skin Exam: normal color SpO2 Interpretation: normal SpO2: 97 O2 Delivery: Room Air Procedures - Laceration/Wound Repair Right Hand Time of Procedure: 19:19 Wound Location: Right Wound Length (cm): 1 Wound Explored: clean Irrigated: Yes Hibiclens Prep: Yes Wound Repaired With: Steri-strips, Dermabond Layer Closure?: No Sterile Dressing Applied?: Yes - Progress Progress: improved Progress Note: 07/11/21 19:40 Superficial laceration, discussed option of Steri-Strips with glue versus suturing and she wanted to proceed with glue/Steri-Strips. Repair is done. Recommended wound care/infection precautions and outpatient follow-up. Counseled pt/family regarding: diagnosis, need for follow-up - Departure Departure Disposition: Home Clinical Impression: Hand laceration Qualifiers: Encounter type: initial encounter Foreign body presence: without foreign body Laterality: right Qualified Code(s): S61.411A - Laceration without foreign body of right hand, initial encounter Condition: Stable Critical Care Time: No Referrals: SAI IYER NP [Primary Care Provider] - Follow Up with PCP/3 days Instructions: Laceration Repair With Glue (DC), Wound Care (DC) Additional Instructions: Keep it clean and dry. Take Tylenol/ibuprofen as needed. Follow up with primary care for reevaluation. Return to ER for increasing swelling redness discharge/difficulty movements of finger/fever chills etc.
== END 2021-07-11 19:44 | disposition home or self-care (01) ==
LOC: ED 18:10
DX: S61.411A Laceration without foreign body of right hand, initial encounter (principal); W25.XXXA Contact with sharp glass, initial encounter; Y93.89 Activity, other specified; Y92.89 Other specified places as the place of occurrence of the external cause
CPT/HCPCS: 12001; 99283

== ENCOUNTER 2022-08-09 02:33 | Emergency (ER) | payer BC ==
--- NOTE | 2022-08-09 03:05 | ERPHSYRPT ---
- History of Present Illness Time Seen by Provider: 08/09/22 02:59 Source: patient Exam Limitations: no limitations Physician History: pt has persisting cough after flu diagnosis and Tx bronchitis earlier this week ( Flu last week completed tamiflu, neg Covid test then. Had COvid x2 prior. Underlying Asthma and had steroid the week before. No No ro V. some pain right ribs after coughing spell. chest with wheezes, Ht reg without M. Abd nontender without peritoneal signs. Timing/Duration: day(s) Cough Quality/Degree: moderate, dry cough Possible Cause: no prior episodes Modifying Factors: Improves With: nothing Associated Symptoms: cough Allergies/Adverse Reactions: oxycodone Allergy (Verified 07/11/21 18:19) Penicillins Allergy (Verified 07/11/21 18:19) Home Medications: SUMAtriptan succinate [Imitrex 50 mg] 50 mg PO UD 01/07/17 [History] Esomeprazole Magnesium [Nexium] 40 mg PO DAILY 02/13/17 [History] Lisinopril 10 mg [Zestril 10 MG] 20 mg PO DAILY 02/13/17 [History] hydroCHLOROthiazide [Hydrochlorothiazide] 12.5 mg PO DAILY 07/06/20 [History] Hx Tetanus, Diphtheria Vaccination/Date Given: Yes Hx Influenza Vaccination/Date Given: No Hx Pneumococcal Vaccination/Date Given: No Travel Risk - Vaccine Status Have you recieved a Covid-19 vaccination: No - Review of Systems Constitutional: No Fever, No Chills Eyes: No Symptoms Ears, Nose, & Throat: No Symptoms Respiratory: Cough, No Dyspnea Cardiac: No Chest Pain, No Edema, No Syncope Abdominal/Gastrointestinal: No Abdominal Pain, No Nausea, No Vomiting, No Diarrhea Genitourinary Symptoms: No Dysuria Musculoskeletal: No Back Pain, No Neck Pain Skin: No Rash Neurological: No Dizziness, No Focal Weakness, No Sensory Changes Psychological: No Symptoms Endocrine: No Symptoms Hematologic/Lymphatic: No Symptoms Immunological/Allergic: No Symptoms All Other Systems: Reviewed and Negative - Past Medical History Pertinent Past Medical History: Yes Neurological History: Migraines ENT History: No Pertinent History Cardiac History: Arrhythmia, Hypertension Respiratory History: Asthma, Other Endocrine Medical History: Other Musculoskeletal History: Osteoarthritis GI Medical History: GERD History: No Pertinent History Psycho-Social History: No Pertinent History Other Medical History: HX OF RECURRENT KIDNEY STONES. HX OF SINUS BRADYCARDIA AND HEART MURMUR. HYSTERECTOMY, CHOLECYSTECTOMY - Past Surgical History Past Surgical History: Yes Neuro Surgical History: No Pertinent History Cardiac: No Pertinent History Respiratory: No Pertinent History Gastrointestinal: Cholecystectomy Female Surgical History: Hysterectomy, Tubal Ligation - Social History Smoking Status: Former smoker Exposure to second hand smoke: No Drug Use: none Patient Lives Alone: No - Nursing Vital Signs Nursing Vital Signs: Initial Vital Signs Temperature 98.1 F 08/09/22 02:45 Pulse Rate 78 08/09/22 02:45 Respiratory Rate 18 08/09/22 02:45 Blood Pressure 152/93 08/09/22 02:45 O2 Sat by Pulse Oximetry 98 08/09/22 02:45 Pain Scale Pain Intensity 5 - Physical Exam General Appearance: no apparent distress, alert Eye Exam: PERRL/EOMI, eyes nml inspection Ears, Nose, Throat Exam: normal ENT inspection, TMs normal, pharynx normal, moist mucous membranes Neck Exam: normal inspection, non-tender, supple, full range of motion Respiratory Exam: normal breath sounds, wheezing, No respiratory distress, No stridor Cardiovascular Exam: regular rate/rhythm, normal heart sounds Gastrointestinal/Abdomen Exam: soft, No tenderness Pelvic Exam: deferred Rectal Exam: deferred Back Exam: normal inspection, No CVA tenderness, No vertebral tenderness Extremity Exam: normal inspection, normal range of motion Neurologic Exam: alert, oriented x 3, cooperative, normal mood/affect, sensation nml, No motor deficits Skin Exam: normal color, warm, dry, No rash Lymphatic Exam: No adenopathy SpO2 Interpretation: normal SpO2: 99 O2 Delivery: Room Air - Course Nursing assessment & vital signs reviewed: Yes - Radiology Exams Chest X-ray Interpretation: Reviewed by me, Other (minimal interstitial infiltrates) Ordered Tests: Active Orders 24 hr Category Date Time Status IV Insertion STAT Care 08/09/22 03:07 Active Pulse Oximetry (ED) STAT Care 08/09/22 03:07 Active CHEST 1 VIEW (PORTABLE) Stat Exams 08/09/22 03:08 Taken CBC W DIFF Stat Lab 08/09/22 03:22 Completed Respiratory Therapy Assessment DAILY RT 08/09/22 03:35 Active Medication Summary Generic Name Dose Route Start Last Admin Trade Name Freq PRN Reason Stop Dose Admin Sodium Chloride 1,000 mls @ 50 mls/hr 08/09/22 03:15 08/09/22 03:42 Sodium Chloride 0.9% 1000 Ml IV 09/08/22 03:14 50 mls/hr .Q20H LILLIAM Administration Discontinued Medications Generic Name Dose Route Start Last Admin Trade Name Uday PRN Reason Stop Dose Admin Albuterol/Ipratropium 3 ml 08/09/22 03:07 08/09/22 03:25 Ipratropium/Albuterol Sulfate 3 Ml Ampul.Neb IH 08/09/22 03:08 3 ml STAT ONE Administration Albuterol/Ipratropium Confirm 08/09/22 03:24 Ipratropium/Albuterol Sulfate 3 Ml Ampul.Neb Administered 08/09/22 03:25 Dose 3 ml IH .STK-MED ONE Methylprednisolone Sodium 0 mg 08/09/22 03:07 08/09/22 03:41 Succinate 125 mg/ Sterile IV 08/09/22 03:08 125 mg Water 2 ml STAT ONE Administration Azithromycin 500 mg in 250 mls @ 250 mls/hr 08/09/22 03:07 08/09/22 03:41 Zithromax 500 Mg/ 250 Ml Nacl Premix IV 08/09/22 04:06 250 ml/hr STAT STA 250 mls/hr Administration Azithromycin Confirm 08/09/22 03:32 Zithromax 500 Mg/ 250 Ml Nacl Premix Administered 08/09/22 03:33 Dose 500 mg in 250 mls @ ud IV .STK-MED ONE Methylprednisolone Sodium Succinate Confirm 08/09/22 03:32 Methylprednis Sod Succ 125 Mg/2 Ml Vial Administered 08/09/22 03:33 Dose 125 mg .ROUTE .STK-MED ONE Sterile Water Confirm 08/09/22 03:32 Water For Injection,Sterile 10 Ml Vial Administered 08/09/22 03:33 Dose 10 ml IJ .STK-MED ONE Lab/Rad Data: Laboratory Result Diagrams 08/09/22 03:22 Laboratory Results 08/09/22 08/09/22 08/09/22 Range/Units 03:29 03:29 03:22 WBC 10.8 H (4.0-10.5) x10^3/uL RBC 4.10 (4.1-5.4) x10^6/uL Hgb 11.8 L (12.0-16.0) g/dL Hct 36.1 (35-47) % MCV 88.0 (78-100) fL MCH 28.8 (26-32) pg MCHC 32.7 (32-36) g/dL RDW 12.9 (11.5-14.0) % Plt Count 263 (150-450) x10^3/uL MPV 9.0 (7.5-11.0) fL Gran % 59.2 (36.0-66.0) % Immature Gran % (Auto) 0.6 H (0.00-0.4) % Nucleat RBC Rel Count 0.0 (0.00-0.1) % Eos # (Auto) 0.16 (0-0.5) x10^3/uL Immature Gran # (Auto) 0.07 H (0.00-0.03) x10^3u/L Absolute Lymphs (auto) 3.31 (1.0-4.6) x10^3/uL Absolute Monos (auto) 0.84 (0.0-1.3) x10^3/uL Absolute Nucleated RBC 0.00 (0.00-0.01) x10^3u/L Lymphocytes % 30.6 (24.0-44.0) % Monocytes % 7.8 (0.0-12.0) % Eosinophils % 1.5 (0.00-5.0) % Basophils % 0.3 (0.0-0.4) % Absolute Granulocytes 6.39 (1.4-6.9) x10^3/uL Basophils # 0.03 (0-0.4) x10^3/uL Influenza Type A Ag NEGATIVE (NEGATIVE) Influenza Type B Ag NEGATIVE (NEGATIVE) RSV (PCR) NEGATIVE (Negative) SARS-CoV-2 (PCR) NEGATIVE (NEGATIVE) Group A Strep Antibody NOT DETECTED (NEGATIVE) - Progress Progress: improved, re-examined Air Movement: good Progress Note: 08/09/22 06:15 symptoms have improved after treatment and pt feels ready to go home. Blood Culture(s) Obtained: No Antibiotics given: Yes Counseled pt/family regarding: lab results, diagnosis, need for follow-up, rad results - Departure Departure Disposition: Home Clinical Impression: Viral URI with cough, exacerbation of asthma Condition: Good Critical Care Time: No Referrals: SAI IYER, [employer]ADER OPERATOR [Primary Care Provider] - Follow up/PCP as directed Instructions: Viral Upper Respiratory Infection, Adult (DC), Asthma, Adult ED Additional Instructions: you may have some underlying respiratory condition such as asthma or chronic bronchitis so we are including those instructions as well as for viral res piratory infections. Followup with your this week, and return meantime if not improving or furt her symptoms or concerns. Prescriptions: Benzonatate 200 mg PO Q8HPRN PRN #20 cap PRN Reason: Cough Methylprednisolone Packet [Medrol Dosepack] 4 mg PO UD #30 packet
[2022-08-09] MEDS ORDERED: solu-MEDROL 125 MG, Sterile H2O 10 ml 2 ML IV ONE ×2 (03:07)
[2022-08-09] MEDS ORDERED: Zithromax 500 MG/ 250 ML NaCl Premix 500 MG/250 ML IVPB IV STA (03:07)
[2022-08-09] MEDS ORDERED: DUONEB 0.5-3 MG/3 ml Neb IH ONE ×2 (03:07→03:24)
[2022-08-09] MEDS ORDERED: Sodium Chloride 0.9% 1000 ML 1,000 ML IV SCH (03:15)
[2022-08-09 03:24] LABS: Absolute Neutrophil Ct (ANC) 6.39 x10^3/uL (1.4-6.9); Basophil (Absolute #) 0.03 x10^3/uL (0-0.4); Eosinophil % 1.5 % (0.00-5.0); Eosinophil (Absolute #) 0.16 x10^3/uL (0-0.5); Hematocrit 36.1 % (35-47); Hemoglobin 11.8 g/dL (12.0-16.0); Lymphocyte (Absolute #) 3.31 x10^3/uL (1.0-4.6); Lymphocytes % 30.6 % (24.0-44.0); Mean Corpuscular Hemoglobin 28.8 pg (26-32); Mean Corpuscular Hgb Concent. 32.7 g/dL (32-36); Monocyte (Absolute #) 0.84 x10^3/uL (0.0-1.3); Monocytes % 7.8 % (0.0-12.0); Neutrophil % 59.2 % (36.0-66.0); Platelet Count 263 x10^3/uL (150-450); Red Cell Distribution Width 12.9 % (11.5-14.0); White Blood Count 10.8 x10^3/uL (4.0-10.5)
[2022-08-09] MEDS ORDERED: Sterile H2O 10 ml IJ ONE (03:32)
[2022-08-09] MEDS ORDERED: solu-MEDROL ONE (03:32)
[2022-08-09] MEDS ORDERED: Zithromax 500 MG/ 250 ML NaCl Premix 500 MG/250 ML IVPB IV ONE (03:32)
[2022-08-09 04:08] LABS: INFLUENZA A NEGATIVE (NEGATIVE); INFLUENZA B NEGATIVE (NEGATIVE); RESPIRATORY SYNCTIAL VIRUS NEGATIVE (Negative); SARS-CoV-2 Xpert Express NEGATIVE (NEGATIVE)
[2022-08-09 06:01] VITALS: BP 106/67; PULSE 79
[2022-08-09 06:15] VITALS: O2SAT 99
--- NOTE | 2022-08-09 08:10 | XRAY ---
Indication: Chest and abdomen pain. Persistent cough. Comparison: December 26, 2017 Portable chest again demonstrates normal heart and lungs. Bony thorax intact. No new/acute findings.
== END 2022-08-09 06:40 | disposition home or self-care (01) ==
LOC: ED 02:33
DX: J06.9 Acute upper respiratory infection, unspecified (principal); R05.9 Cough, unspecified; J45.901 Unspecified asthma with (acute) exacerbation; I10 Essential (primary) hypertension; Z79.52 Long term (current) use of systemic steroids; Z79.899 Other long term (current) drug therapy; Z28.310 Unvaccinated for COVID-19; Z86.16 Personal history of COVID-19
CPT/HCPCS: 0241U; 36000; 36415; 71045; 85025; 87651; 94640; 94760; 96374; 99284; J0456; J2930; A9270-GY

== ENCOUNTER 2023-08-17 23:13 | Emergency (ER) | payer BC ==
--- NOTE | 2023-08-17 23:34 | ERPHSYRPT ---
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 She has a history of ureterolithiasis in the past. Patient has had a hysterectomy, cholecystectomy as well. Patient has nausea but has not been vomiting. She has no chest pain. She has no shortness of breath. She has not had any diarrhea. This patient has a history of hypertension, gastroesophageal reflux disease, migraine headache and arrhythmias. Timing/Duration: today Quality: sharpness, stabbing Abdominal Pain Onset Location: LLQ, suprapubic (Left side), flank (Left) Pain Radiation: LLQ Severity of Pain-Max: moderate Severity of Pain-Current: moderate Modifying Factors: Improves With: nothing Associated Symptoms: denies symptoms Previous symptoms: same symptoms as today, no recent treatment Allergies/Adverse Reactions: oxycodone Allergy (Verified 08/17/23 23:34) Penicillins Allergy (Verified 08/17/23 23:34) Home Medications: SUMAtriptan succinate [Imitrex 50 mg] 50 mg PO UD 01/07/17 [History] Lisinopril 10 mg [Zestril 10 MG] 20 mg PO DAILY 02/13/17 [History] hydroCHLOROthiazide [Hydrochlorothiazide] 12.5 mg PO DAILY 07/06/20 [History] Paroxetine HCl 20 mg [Paxil 20 MG] 20 mg PO DAILY 08/17/23 [History] Hx Tetanus, Diphtheria Vaccination/Date Given: Yes Hx Influenza Vaccination/Date Given: No Hx Pneumococcal Vaccination/Date Given: No Travel Risk - International Travel Have you traveled outside of the country in past 3 weeks: No - Coronavirus Screening Are you exhibiting any of the following symptoms?: No Close contact with a COVID-19 positive Pt in past 14-21 Days: No - Vaccine Status Have you recieved a Covid-19 vaccination: No - Review of Systems Constitutional: No Symptoms Eyes: No Symptoms Ears, Nose, & Throat: No Symptoms Respiratory: No Symptoms Cardiac: No Symptoms Abdominal/Gastrointestinal: Abdominal Pain, Nausea, No Vomiting, No Diarrhea Genitourinary Symptoms: Flank Pain (Left) Musculoskeletal: No Symptoms Skin: No Symptoms Neurological: No Symptoms Psychological: No Symptoms Endocrine: No Symptoms Hematologic/Lymphatic: No Symptoms Immunological/Allergic: No Symptoms All Other Systems: Reviewed and Negative - Past Medical History Pertinent Past Medical History: Yes Neurological History: Migraines ENT History: No Pertinent History Cardiac History: Arrhythmia, Hypertension Respiratory History: Asthma, Other Endocrine Medical History: Other Musculoskeletal History: Osteoarthritis GI Medical History: GERD History: No Pertinent History Psycho-Social History: No Pertinent History Other Medical History: HX OF RECURRENT KIDNEY STONES. HX OF SINUS BRADYCARDIA AND HEART MURMUR. HYSTERECTOMY, CHOLECYSTECTOMY - Past Surgical History Past Surgical History: Yes Neuro Surgical History: No Pertinent History Cardiac: No Pertinent History Respiratory: No Pertinent History Gastrointestinal: Cholecystectomy Female Surgical History: Hysterectomy, Tubal Ligation - Social History Smoking Status: Former smoker Exposure to second hand smoke: No Drug Use: none Patient Lives Alone: No - Nursing Vital Signs Nursing Vital Signs: Initial Vital Signs Temperature 97.2 F 08/17/23 23:40 Pain Scale Pain Intensity 2 - Physical Exam General Appearance: no apparent distress, alert, anxiety, obese Eye Exam: PERRL/EOMI, eyes nml inspection Ears, Nose, Throat Exam: normal ENT inspection, moist mucous membranes Neck Exam: normal inspection, non-tender, supple, full range of motion Respiratory Exam: normal breath sounds, lungs clear, airway intact, No chest tenderness, No respiratory distress Cardiovascular Exam: regular rate/rhythm, normal heart sounds, normal peripheral pulses Gastrointestinal/Abdomen Exam: soft, normal bowel sounds, tenderness (Mild left lower quadrant), No guarding, No rebound Pelvic Exam: not done Rectal Exam: not done Back Exam: normal inspection, normal range of motion, CVA tenderness (Left), No vertebral tenderness Extremity Exam: normal inspection, normal range of motion, pelvis stable Neurologic Exam: alert, oriented x 3, cooperative, beer maker II-XII nml as tested Skin Exam: normal color, warm, dry Lymphatic Exam: No adenopathy SpO2 Interpretation: normal O2 Delivery: Room Air - Course Nursing assessment & vital signs reviewed: Yes Ordered Tests: Active Orders 24 hr Category Date Time Status IV Insertion STAT Care 08/17/23 23:52 Active ABDOMEN AND PELVIS W/0 CONTRAS [CT] Stat Exams 08/17/23 23:52 Completed CULTURE,URINE Stat Lab 12/04/23 23:40 Received UA W/RFX UR CULTURE Stat Lab 08/17/23 23:40 Completed Medication Summary Discontinued Medications Generic Name Dose Route Start Last Admin Trade Name Uday PRN Reason Stop Dose Admin Hydromorphone HCl 1 mg 12 23:52 12 00:17 Hydromorphone 1 Mg/1ml Inj IV 08/17/23 23:53 1 mg STAT ONE Administration Hydromorphone HCl Confirm 08/17/23 23:59 Hydromorphone 1 Mg/1ml Inj Administered 08/18/23 00:00 Dose 1 mg .ROUTE .STK-MED ONE Sodium Chloride 1,000 mls @ 999 mls/hr 08/17/23 23:52 08/18/23 01:18 Sodium Chloride 0.9% 1000 Ml IV 08/18/23 00:52 Infused .Q1H1M STA Infusion Sodium Chloride Confirm 08/17/23 23:59 Sodium Chloride 0.9% 1000 Ml Administered 08/18/23 00:00 Dose 1,000 mls @ ud .ROUTE .STK-MED ONE Ketorolac Tromethamine 30 mg 08/17/23 23:52 08/18/23 00:16 Ketorolac Tromethamine 30 Mg/Ml Inj IV 08/17/23 23:53 30 mg STAT ONE Administration Ketorolac Tromethamine Confirm 08/18/23 00:12 Ketorolac Tromethamine 30 Mg/Ml Inj Administered 08/18/23 00:13 Dose 30 mg .ROUTE .STK-MED ONE Ondansetron HCl 4 mg 08/17/23 23:52 08/18/23 00:15 Ondansetron Hcl 4 Mg/2 Ml Vial IV 08/17/23 23:53 4 mg STAT ONE Administration Ondansetron HCl Confirm 08/17/23 23:59 Ondansetron Hcl 4 Mg/2 Ml Vial Administered 08/18/23 00:00 Dose 4 mg .ROUTE .STK-MED ONE Pantoprazole Sodium Confirm 08/17/23 23:59 Pantoprazole 40 Mg Vial Administered 08/18/23 00:00 Dose 40 mg IV .STK-MED ONE Pantoprazole Sodium 40 mg 08/18/23 00:30 08/18/23 00:31 Pantoprazole 40 Mg Vial IV 08/18/23 00:31 40 mg STAT ONE Administration Lab/Rad Data: Laboratory Result Diagrams 08/17/23 00:15 08/17/23 00:15 Laboratory Results 08/17/23 08/17/23 08/17/23 Range/Units 23:40 00:15 00:15 WBC 11.0 H (4.0-10.5) x10^3/uL RBC 4.14 (4.1-5.4) x10^6/uL Hgb 12.0 (12.0-16.0) g/dL Hct 35.9 (35-47) % MCV 86.7 (78-100) fL MCH 29.0 (26-32) pg MCHC 33.4 (32-36) g/dL RDW 13.7 (11.5-14.0) % Plt Count 245 (150-450) x10^3/uL MPV 9.0 (7.5-11.0) fL Gran % 75.5 H (36.0-66.0) % Immature Gran % (Auto) 0.4 (0.00-0.4) % Nucleat RBC Rel Count 0.0 (0.00-0.1) % Eos # (Auto) 0.06 (0-0.5) x10^3/uL Immature Gran # (Auto) 0.04 H (0.00-0.03) x10^3u/L Absolute Lymphs (auto) 1.81 (1.0-4.6) x10^3/uL Absolute Monos (auto) 0.74 (0.0-1.3) x10^3/uL Absolute Nucleated RBC 0.00 (0.00-0.01) x10^3u/L Lymphocytes % 16.5 L (24.0-44.0) % Monocytes % 6.7 (0.0-12.0) % Eosinophils % 0.5 (0.00-5.0) % Basophils % 0.4 (0.0-0.4) % Absolute Granulocytes 8.29 H (1.4-6.9) x10^3/uL Basophils # 0.04 (0-0.4) x10^3/uL Sodium 129 L (137-145) mmol/L Potassium 3.6 (3.5-5.1) mmol/L Chloride 100 (98-107) mmol/L Carbon Dioxide 20 L (22-30) mmol/L Anion Gap 12.8 (5-15) MEQ/L BUN 22 H (7-17) mg/dL Creatinine 0.61 (0.52-1.04) mg/dL Estimated GFR 113.0 ML/MIN Glucose 128 H (74-106) mg/dL Calcium 9.0 (8.4-10.2) mg/dL Total Bilirubin 0.30 (0.2-1.3) mg/dL AST 20 (14-36) U/L ALT 22 (0-35) U/L Alkaline Phosphatase 80 (38-126) U/L Serum Total Protein 7.2 (6.3-8.2) g/dL Albumin 3.9 (3.5-5.0) g/dL Amylase 51 (30-110) U/L Lipase 56 (23-300) U/L Urine Color Yellow (Yellow) Urine Appearance Cloudy A (Clear) Urine pH 5.5 (4.6-8.0) Ur Specific [place] >=1.030 A (1.005-1.030) Urine Protein 30 (Negative) Urine Glucose (UA) Negative (Negative) mg/dL Urine Ketones Trace A (Negative) Urine Blood Large A (Negative) Urine Nitrite Negative (Negative) Urine Bilirubin Negative (Negative) Urine Urobilinogen 0.2 (0.2) mg/dL Ur Leukocyte Esterase Negative (Negative) U Hyaline Cast (Auto) NONE SEEN (0-2) /LPF Urine Microscopic RBC >100 A (0-5) /HPF Urine Microscopic WBC 0-2 (0-5) /HPF Ur Epithelial Cells Few (None Seen) /HPF Urine Bacteria None Seen (None Seen) /HPF Urine Culture Reflexed YES (NO) - Progress Progress: improved Progress Note: 08/17/23 23:56 This patient's medical condition is 1 of moderate complexity. Level complex in the workup performed is based on review of the patient's past medical history, review the patient's medication list, reviewed patient's drug allergy list, history present illness and physical findings on examination. This patient workup includes placement of intravenous line, obtaining a urinalysis, CBC, CMP, amylase, lipase, CT scan of the abdomen pelvis, infusion of normal saline solution, infusion of Toradol intravenously, infusion of Zofran intravenously and infusion of Dilaudid intravenously. 08/18/23 01:02 I reviewed and interpreted the patient's laboratory results. Patient does have hematuria. Patient has a sodium level 129. She is receiving 1 L of normal saline solution. There is no evidence of urinary tract infection. We are awaiting the CT scan results of the abdomen and pelvis. 08/18/23 01:02 08/18/23 01:05 Patient states that she does not have a true allergy to oxycodone. It makes her feel odd. She has taken hydrocodone and acetaminophen without adverse effects. 08/18/23 01:42 CT scan of the abdomen and pelvis was interpreted by the radiologist and I reviewed the impression and also reviewed the results with the patient. There is a left 4 mm ureteral calculus causing proximal uropathy. There is a large uncomplicated supraumbilical hernia present. Counseled pt/family regarding: lab results, diagnosis, need for follow-up, rad results Medical Desision Making - Independent Historian Additional History obtained from: Child - Diagnostic Testing Diagnostic test were ordered, analyzed, and reviewed by me: Yes Radiological Interpretation: Reviewed by me, Teleradiologist Report - Risk of complications The pt has a mod risk of morbidity or mortality based on: Need for prescription drug management - Departure Departure Disposition: Home Clinical Impression: Ureterolithiasis, Supraumbilical hernia Condition: Stable Critical Care Time: No Referrals: SAI IYER, DONNA [Primary Care Provider] - Follow up/PCP as directed Additional Instructions: Drink plenty of fluids. Take your medications as prescribed. Add ibuprofen 600 mg orally 3 times a day with food for 4 days. Call your primary care provider and your urologist later today, 08/18/2023, to make arrangement for follow-up appointment and further management. Prescriptions: Hydrocodone/APAP 5/325 [[place] 5/325 mg] 1 each PO Q8H PRN PRN #6 tablet MDD 3 PRN Reason: Pain Tamsulosin HCl 0.4 mg [Flomax 0.4 MG] 0.4 mg PO DAILY #7 cap
[2023-08-17 23:51] LABS: Appearance Cloudy (Clear); Bacteria None Seen /HPF (None Seen); Bilirubin Negative (Negative); Blood Large (Negative); Epithelial Cells Few /HPF (None Seen); Glucose, Urine Negative (Negative); Hyaline Casts NONE SEEN /LPF (0-2); Ketones Trace (Negative); Leukocyte Esterase Negative (Negative); Nitrite Negative (Negative); Ph 5.5 (4.6-8.0); Protein,Urine Dip 30 (Negative); RBC >100 /HPF (0-5); Specific Gravity >=1.030 (1.005-1.030); Urobilinogen 0.2 mg/dL (0.2); WBC 0-2 /HPF (0-5)
[2023-08-17] MEDS ORDERED: Hydromorphone 1 mg/ml Injection IV ONE (23:52)
[2023-08-17] MEDS ORDERED: Zofran 4 MG/2 ML VIAL IV ONE (23:52)
[2023-08-17] MEDS ORDERED: Sodium Chloride 0.9% 1000 ML 1,000 ML IV STA (23:52)
[2023-08-17] MEDS ORDERED: TORAdol 30 mg Injection IV ONE (23:52)
[2023-08-17 23:53] LABS: ADD URINE CULTURE? YES (NO)
[2023-08-17 23:56] VITALS: TEMP 97.2
[2023-08-17] MEDS ORDERED: Hydromorphone 1 mg/ml Injection ONE (23:59)
[2023-08-17] MEDS ORDERED: Zofran 4 MG/2 ML VIAL ONE (23:59)
[2023-08-17] MEDS ORDERED: PROTONIX 40 MG IV IV ONE (23:59)
[2023-08-17] MEDS ORDERED: Sodium Chloride 0.9% 1000 ML 1,000 ML ONE (23:59)
[2023-08-18] MEDS ORDERED: TORAdol 30 mg Injection ONE (00:12)
[2023-08-18 00:20] LABS: Absolute Neutrophil Ct (ANC) 8.29 x10^3/uL (1.4-6.9); BASOPHIL % 0.4 % (0.0-0.4); Basophil (Absolute #) 0.04 x10^3/uL (0-0.4); Eosinophil % 0.5 % (0.00-5.0); Eosinophil (Absolute #) 0.06 x10^3/uL (0-0.5); Hematocrit 35.9 % (35-47); IMMATURE GRAN # 0.04 x10^3u/L (0.00-0.03); IMMATURE GRAN % 0.4 % (0.00-0.4); Lymphocyte (Absolute #) 1.81 x10^3/uL (1.0-4.6); Lymphocytes % 16.5 % (24.0-44.0); Mean Cell Volume 86.7 fL (78-100); Mean Corpuscular Hgb Concent. 33.4 g/dL (32-36); Monocyte (Absolute #) 0.74 x10^3/uL (0.0-1.3); Monocytes % 6.7 % (0.0-12.0); Neutrophil % 75.5 % (36.0-66.0); Platelet Count 245 x10^3/uL (150-450); Red Blood Count 4.14 x10^6/uL (4.1-5.4); Red Cell Distribution Width 13.7 % (11.5-14.0)
[2023-08-18] MEDS ORDERED: PROTONIX 40 MG IV IV ONE (00:30)
[2023-08-18 00:40] LABS: ALBUMIN 3.9 g/dL (3.5-5.0); ANION GAP 12.8 MEQ/L (5-15); BILIRUBIN,TOTAL 0.3 mg/dL (0.2-1.3); Creatinine 1 0.61 mg/dL (0.52-1.04); Potassium 3.6 mmol/L (3.5-5.1); Total Protein 7.2 g/dL (6.3-8.2)
[2023-08-18 01:07] VITALS: PULSE 68
--- NOTE | 2023-08-18 01:35 | XRAY ---
CLINICAL HISTORY:Left flank pain COMPARISON:09/06/2020 TECHNIQUE:CT scan of the abdomen and pelvis was performed without IV contrast.Coronal and sagittal reconstructive images were also obtained. FINDINGS: Sections of lower thorax show thin fibroatelectatic bands in basal regions. Abdomen: The liver is enlarged, measuring 22 cm craniocaudally. No focal or diffuse parenchymal abnormality. The portal vein, intrahepatic biliary radicals and the bile ducts are normal. The gallbladder is surgically removed. The spleen, pancreas, adrenal glands are unremarkable. Left kidney appears slightly bulky with mild hydroureteronephrosis on left side due to 4 mm calculus in the left distal ureter, after crossing of iliac vessels, causing proximal obstruction. Few ( atleast 6 ) small 1-3mm calculi seen in all the calyces of left kidney. Few tiny 1-3mm calculi are seen in upper and lower calyces of right kidney, at least 5 in number. No hydronephrosis on right side. The right kidney is normal in size and shape. The ascending colon, the transverse colon, the descending colon, visualized small bowel loops are unremarkable. No sign of appendicitis. There is no evidence of significant enlargement of the mesenteric or retroperitoneal lymph nodes. Large supraumbilical hernia noted with transverse colon and Omental fat as content. No proximal obstruction/complications detected. Pelvis: The urinary bladder is unremarkable. The rectosigmoid colon is unremarkable. The uterus is not visualized, operated. No evidence of pelvic lymphadenopathy. The lumbar spine shows early degenerative changes. IMPRESSION: 1. Left 4 mm distal ureteric calculus causing proximal uropathy. New finding. 2. Small non-obstructive calculi in both kidneys 3. Large uncomplicated supraumbilical hernia with transverse colon and Omental fat as content 4. Moderate hepatomegaly 5. Interval development of small right renal calculi as compared to previous study with increase in number of left renal calculi. Interval herniation of transverse colon in supraumbilical hernia. [facility] was called at [phone] at 12:20 AM COLLECTIONS REPRESENTATIVE, 08/18/2023 and results were verbally communicated to Erik Pearson Electronically Signed by: Carlene Gerber MD. (08/18/2023 01:30:27 EST)
[2023-08-18] MEDS ORDERED: Flomax 0.4 MG PO ONE (01:39)
[2023-08-18] MEDS ORDERED: NORCO 5/325 MG PO ONE (01:43)
[2023-08-18] MEDS ORDERED: NORCO 5/325 MG ONE (01:43)
[2023-08-18] MEDS ORDERED: Flomax 0.4 MG ONE (01:43)
[2023-08-18 02:03] VITALS: BP 109/66; RESP 18; O2SAT 99
== END 2023-08-18 02:04 | disposition home or self-care (01) ==
LOC: ED 23:13
DX: N20.1 Calculus of ureter (principal); K43.9 Ventral hernia without obstruction or gangrene; R10.32 Left lower quadrant pain; R10.2 Pelvic and perineal pain; R11.0 Nausea; I10 Essential (primary) hypertension; Z79.891 Long term (current) use of opiate analgesic; Z79.899 Other long term (current) drug therapy; Z28.310 Unvaccinated for COVID-19; Z87.442 Personal history of urinary calculi
CPT/HCPCS: 36000; 36415; 74176; 80053; 81001; 82150; 83690; 85025; 87086; 96360; 96374; 96375; 99284; J1170; J1885; J2405; A9270-GY